=== PATIENT | male | born 1945 | race Caucasian/White ===

== ENCOUNTER 2019-05-11 13:33 | Inpatient (IN) ==
--- NOTE | 2019-05-11 13:58 | PDOC ---
Chest Pain HPI - General Chief Complaint: Chest Pain Stated Complaint: chest pain Date Seen by Provider: 05/11/19 Time Seen by Provider: 13:46 Source: Patient Exam Limitations: POSITIVE: No limitations Treatment Prior to Arrival: REPORTS: Aspirin (81 mg in am as daily medication) Nurse's Notes Reviewed & Considered: Yes - Record Incomplete EMS Report Reviewed & Considered: Verbal - History of Present Illness Initial Comments: 73 yo male presents to ED with complaint of intermittent chest pain since yesterday evening. He lives in the alf in [place]. He has a defib rillator. He states that it has not shocked him. He reports upper abdominal pain with his chest pain. He also reports associated shortness of breath. He denies cough. Denies fevers. Denies R/C/EA/ST. Body Location Affected: REPORTS: Chest, Abdomen Timing: REPORTS: Intermittent Duration: <24 hours Severity: Moderate Context: REPORTS: Rest Quality: REPORTS: Sharpness Associated Symptoms: REPORTS: Nausea, Hurts to Breathe. DENIES: Vomiting, Diaphoresis, Palpitations, Productive Cough (blood), Productive Cough (sputum), Weakness, Dizziness - Patient Home Medications Home Medications: Home Medications acetaminophen 500 mg tablet 1,000 mg PO Q6H PRN tab 05/11/19 aspirin 81 mg tablet,delayed release 81 mg PO QDAY 05/11/19 folic acid 1 mg tablet 1 mg PO QDAY 05/11/19 guaifenesin ER 600 mg tablet, extended release 12 hr 600 mg PO BID 05/11/19 levothyroxine 50 mcg tablet 50 mcg PO QDAY 05/11/19 lisinopril 2.5 mg tablet 2.5 mg PO QDAY 05/11/19 magnesium 400 mg (as magnesium oxide) tablet 400 mg PO QDAY tab 05/11/19 metoprolol succinate ER 25 mg tablet,extended release 24 hr 12.5 mg PO QDAY tab 05/11/19 pantoprazole 40 mg tablet,delayed release 40 mg PO QDAY 05/11/19 pravastatin 10 mg tablet 10 mg PO QHS tab 05/11/19 sitagliptin 100 mg tablet 100 mg PO QDAY 05/11/19 spironolactone 25 mg tablet 25 mg PO QDAY 05/11/19 - Patient Allergies Allergies/Adverse Reactions: Allergies Allergy/AdvReac Type Severity Reaction Status Date / Time No Known Allergies Allergy Unverified 05/11/19 13:55 ROS - Limitations ROS Limitations: No Limitations Constitution: REPORTS: Denies Symptoms Cardiovascular: REPORTS: Chest Pain Respiratory: REPORTS: Denies Resp Symptoms Neurological: REPORTS: Denies Neuro Symptoms Gastrointestinal: REPORTS: Denies GI Symptoms Endocrine: REPORTS: Denies Symptoms Musculoskeletal: DENIES: Back Pain, Calf Pain Genitourinary: REPORTS: Denies Symptoms Eyes: REPORTS: Denies Symptoms ENT: REPORTS: Denies Symptoms Skin: REPORTS: Denies Skin Symptoms Lympathic: REPORTS: Denies Lympathic Symptoms Immunologic: POSITIVE: Denies Symptoms Psychiatric: POSITIVE: Anxiety Chest Pain PE - General Appearance General Appearance: REPORTS: Alert, Cooperative, Anxious, Mild Distress - HEENT HEENT: POSITIVE: Head Inspection Nml, Eyes Inspection Nml, Ears Inspection Nml, PERRL, EOMI - Neck Neck: REPORTS: Normal Inspection, No Carotid Bruit - Respiratory Respiratory: REPORTS: No Respiratory Distress, Breath Sounds Normal, Chest Non- Tender, Wheezes - Cardiovascular Cardiovascular: REPORTS: Regular Rate and Rhythm, Heart Sounds Normal, Equal Pulses, Strong Pulses Peripheral Pulses: Radial (R): 2+, Radial (L): 2+ - Abdomen Abdomen: Soft: (All Quadrants), Normal Bowel Sounds: (All Quadrants), Denies Tenderness: (All Quadrants), No Splenomegaly: (All Quadrants) Additional Abdominal Details: abdominal wall contusion noted bilaterally - Skin Skin: REPORTS: Intact, Normal For Race, Warm, Dry, No Rash, Other (contusion) - Extremities Extremity: Non-Tender: (All Extremities), Normal ROM: (All Extremities), Normal Inspection: (All Extremities), Pelvis Stable: (All Extremities) - Neurological / Psychological Neurological: POSITIVE: Affect Apporpriate, Oriented X3, 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 abdomen shows no obstruction. No free air. Lab Results Reviewed by Me: Yes CBC and BMP: 05/11/19 13:59 05/11/19 14:15 Lab Results:: Laboratory Results 05/11/19 05/11/19 05/11/19 13:59 14:15 14:15 WBC 6.94 RBC 4.51 L Hgb 12.4 L Hct 37.9 L MCV 84.0 MCH 27.5 MCHC 32.7 L RDW Std Deviation 51.5 H RDW Coeff of Nicci 17.1 H Plt Count 188 MPV 10.4 Neutrophils % (Manual) 61 Band Neutrophils % 0 Lymphocytes % (Manual) 29 Monocytes % (Manual) 6 Eosinophils % (Manual) 3 Basophils % (Manual) 1 Metamyelocytes % 0 Myelocytes % 0 Promyelocytes % 0 Blast Cells 0 WBC Morphology Comment See comments Plt Morphology Comment See comments RBC Morph Comment See comments PT 15.7 H INR 1.36 Sodium 136 Potassium 5.8 H Chloride 102 Carbon Dioxide 19 L Anion Gap 15 BUN 44 H Creatinine 2.2 H Estimated GFR [employer] BUN/Creatinine Ratio 20.00 Glucose 92 Calculated Osmolality 292.0 Calcium 8.8 Total Bilirubin 0.7 AST 94 H ALT 53 Alkaline Phosphatase 113 Troponin I Total Protein 7.1 Albumin 4.0 Globulin 3.1 Albumin/Globulin Ratio 1.20 L 05/11/19 14:15 WBC RBC Hgb Hct MCV MCH MCHC RDW Std Deviation RDW Coeff of Nicci Plt Count MPV Neutrophils % (Manual) Band Neutrophils % Lymphocytes % (Manual) Monocytes % (Manual) Eosinophils % (Manual) Basophils % (Manual) Metamyelocytes % Myelocytes % Promyelocytes % Blast Cells WBC Morphology Comment Plt Morphology Comment RBC Morph Comment PT INR Sodium Potassium Chloride Carbon Dioxide Anion Gap BUN Creatinine Estimated GFR BUN/Creatinine Ratio Glucose Calculated Osmolality Calcium Total Bilirubin AST ALT Alkaline Phosphatase Troponin I < 0.012 Total Protein Albumin Globulin Albumin/Globulin Ratio EKG Interpreted/Reviewed By Me:: Yes EKG Interpretation:: POSITIVE: Abnormal EKG (Sinus rhythm with left axis deviation and LBBB with nonspecific T wave inversion.) - Patient's Progress Pain Medication Addressed: POSITIVE: Yes (aspirin given) Re-Examine Comment: Patient has hyperkalemia and was given an amp of calcium and amp of sodium bicarbonate and a liter of fluids. I was able to obtain previous labs from [facility] which shows an acute kidney injury when compared with todays labs. I feel the patient should be admitted for further work up of his chest pain and HARRISON. He is amenable to plan. The case was discussed with hospitalist, Dr. Gramajo, who accepted patient for admission. Patient was admitted in stable and unchanged condition. Status: POSITIVE: Unchanged MDM / ED Course: Will obtain EKG, CXR, establish IV line, check serum labs and given aspirin. Quality Measure Initiative: CP/AMI: POSITIVE: EKG, ASA - Consult Consult (If Yes, Name of Consulting MD & Time Called): Yes (Dr. Gramajo) Consulting MD will see pt:: POSITIVE: [facility] [place] Admit Counseled: POSITIVE: Patient, RE: Lab Results, RE: Radiology Results, RE: DX, Other (need for admission) Patient Care Time - Estimated PCT Patient Care Time (In Minutes): 70 Vital Signs - Recent Vital Signs Vital Signs: Vital Signs (Last 8 hours) Temp Pulse Resp BP Pulse Ox 05/11/19 17:35 97.1 F 76 18 103/67 96 - VS Reviewed Vital Signs Reviewed: Yes Discharge Clinical Impression: Chest pain, Acute kidney failure, Hyperkalemia Discharge Disposition: Admit to Inpatient Condition: Fair Patient Problem(s) Reviewed: Yes Date Decision to Admit to Inpatient: 05/11/19 Time Decision to Admit to Inpatient: 17:19
[2019-05-11] MEDS ORDERED: ASPIRIN 81 MG (BABY) CHEWABLE TABLET PO ONE (13:59)
--- NOTE | 2019-05-11 14:10 | EKG ---
[address] [address] Measurements Intervals [place] Rate: 73 P: 56 DC: 184 QRS: -31 QRSD: 154 T: 102 QT: 439 QTc: 465 Interpretive Statements SINUS RHYTHM MARKED LEFT AXIS DEVIATION [QRS AXIS < -30] LEFT BUNDLE BRANCH BLOCK [120+ ms QRS DURATION, 80+ ms Q/S IN V1/V2, 85+ ms R IN I/aVL/V5/V6] No previous ECG available for comparison [email or web address]
[2019-05-11 14:38] LABS: BLOOD UREA NITROGEN 44 mg/dL (7-22)
[2019-05-11 14:38] LABS: Hematocrit [HCT] 37.9 % (42.0-52.0); Hemoglobin [HGB] 12.4 g/dL (14.0-18.0); MEAN CORPUSCULAR HEMOGLOBIN 27.5 PG (27-31); MEAN CORPUSCULAR HGB CONC 32.7 g/dL (33-37); MEAN PLATELET VOLUME 10.4 FL (7.4-12.2); RED BLOOD COUNT 4.51 10^6/uL (4.70-6.10)
[2019-05-11 14:55] LABS: PLATELET MORPHOLOGY COMMENT SEE COMMENTS (NORM); RBC MORPHOLOGY COMMENT SEE COMMENTS (NORM); WBC MORPHOLOGY COMMENT SEE COMMENTS (NORM)
[2019-05-11 14:56] LABS: BAND NEUTROPHILS % 0 % (0-10); BASOPHILS % (MANUAL) 1 % (0-1); EOSINOPHILS % (MANUAL) 3 % (0-8); METAMYELOCYTES % 0 %; MONOCYTES % (MANUAL) 6 % (0-12); MYELOCYTES % 0 %; NEUTROPHILS % (MANUAL) 61 % (50-80); PROMYELOCYTES % 0 %
--- NOTE | 2019-05-11 16:53 | DI ---
CHEST X-RAY WITH ABDOMINAL SERIES, 05/11/2019 1:59 PM : Clinical History: Epigastric pain. Chest pain. Chest View: PA Abdomen View(s): KUB and upright abdomen. Previous Chest: None at this facility. Previous Abdomen: None at this facility. Chest X-Ray: Soft Tissues: No acute soft tissue or bony abnormality. Bones: Multiple old right lateral rib fractures. Heart: Heart Size: Cardiomegaly with right heart enlargement consistent with compensated chronic righ t heart failure. There is a combined dual-chamber pacemaker and internal defibrillator and both leads are in the appropriate position. The right ventricular lead reflects enlargement of the right heart. Vascular Pedicle Width: Enlarged. Azygous Vein: Not visualized Vascular Flow Pattern:Normal. Pulmonary Arteries: Normal. Lungs: No infiltrates. Effusion(s): None. Mediastinum: Normal. Nodules: No pulmonary nodules. Free Air: No free air under diaphragms. Abdominal Series: Soft Tissues: No acute soft tissue abnormalities. Bones: Normal. Bowel Pattern: Normal bowel gas pattern, psoas margins, and flank stripes. Free Air: No free air. Free Fluid: None. Radiodensities: No abnormal radiodensities. Readin. Cardiomegaly with compensated chronic right heart failure. This should be correlated with the cli nical findings. No acute infiltrate or effusion. No free air under the diaphragms. 2. Normal KUB and upright abdomen.
[2019-05-11] MEDS ORDERED: CALCIUM CHLORIDE 10% (100 MG/1 ML) - 10 ML SYRINGE IVP ONE (17:31)
[2019-05-11] MEDS ORDERED: SODIUM BICARBONATE 8.4% - 50 ML ADULT SYRINGE IVP ONE (17:31)
[2019-05-11] MEDS ORDERED: ACETAMINOPHEN 500 MG TABLET PO PRN (18:26)
[2019-05-11] MEDS ORDERED: CALCIUM CARBONATE 500 MG (TUMS) CHEWABLE TABLET PO PRN (18:30)
[2019-05-11] MEDS ORDERED: LIDOCAINE W/ SODIUM BICARB 0.5 ML SYR SUBD PRN (18:30)
--- NOTE | 2019-05-11 19:26 | PDOC ---
HPI - History of Present Illness Date of Service: 05/11/19 Time of Service: 18:30 Chief Complaint: Chest pain maybe of 2 days' duration History of Present Illness: This is a 73 years old male with medical history significant for history of diab etes, history of congestive heart failure unknown type, hypertension, history of coronary artery disease with previous stents, history of previous defibrillator pacemaker insertion who was transferred from [facility] to the [facility] few dyas ago it seems for long-term placement according to him. He's been having chest pain he said for about a month maybe like every day it is in the middle of the chest there is some numbness in her right arm with it. He couldn't tell me if it was associated with exertion or not. He did say that he feels sometimes dizzy if he stand up. Couldn't tell me the duration maybe for about a month. He Is denying shortness of breath. No leg swelling. Because of the pain that he had in the chest he was sent to the ER from [facility]. In the ER he was found to have renal failure and his creatinine compared to the last blood tests that was done in [place] is higher than before from 1.3 to 2.2 today. Potassium was elevated he was given bicarbonate and calcium and was admitted. Currently he is denying chest pain, shortness of breath. He did say that he was admitted to [facility] maybe about 2 weeks ago for a fall. The notes from them mention that he had a urinary tract infection. Past Medical History Medical History: 1. History of congestive heart failure unknown type, status post the pacemaker and defibrillator insertion. 2. History of diabetes type II on oral hypoglycemic agent. 3. History of hypertension. 4. History of hyperlipidemia. 5. Recent admission to the [facility] after a fall, seems it was attributed to UTI was treated and then switched to swing bed. From the swing bed he was transferred to [facility]. 6. The notes from [facility] mention history of adenocarcinoma of the rectum. He did say that he had abdominal surgery but he wasn't sure for what reason. 7. Hypothyroidism. 8. History of coronary artery disease with previous stent Surgical History: 1. History of abdominal hernia surgery. 2. History of tonsillectomy Family History: Reviewed an Not Pertinent Past Social History: Does not smoke, occasionally drink, no drugs. Used to live in [place] and recently transferred to [facility]. He said that the plan is to stay there permanently. Tobacco Use: Never Smoker In the Past 12 Months, Have Used or Abuse Any of the Following Substance: None Medication / Allergies Home Medications: Home Medications Medication Instructions Recorded Confirmed acetaminophen 500 mg tablet 1,000 mg PO Q6H PRN tab 05/11/19 05/11/19 aspirin 81 mg tablet,delayed 81 mg PO QDAY 05/11/19 05/11/19 release folic acid 1 mg tablet 1 mg PO QDAY 05/11/19 05/11/19 guaifenesin ER 600 mg tablet, 600 mg PO BID 05/11/19 05/11/19 extended release 12 hr levothyroxine 50 mcg tablet 50 mcg PO QDAY 05/11/19 05/11/19 lisinopril 2.5 mg tablet 2.5 mg PO QDAY 05/11/19 05/11/19 magnesium 400 mg (as magnesium 400 mg PO QDAY tab 05/11/19 05/11/19 oxide) tablet metoprolol succinate ER 25 mg 12.5 mg PO QDAY tab 05/11/19 05/11/19 tablet,extended release 24 hr pantoprazole 40 mg tablet,delayed 40 mg PO QDAY 05/11/19 05/11/19 release pravastatin 10 mg tablet 10 mg PO QHS tab 05/11/19 05/11/19 sitagliptin 100 mg tablet 100 mg PO QDAY 05/11/19 05/11/19 spironolactone 25 mg tablet 25 mg PO QDAY 05/11/19 05/11/19 Allergies/Adverse Reactions: Allergies Allergy/AdvReac Type Severity Reaction Status Date / Time No Known Allergies Allergy Unverified 05/11/19 13:55 Review of Systems - Review of Systems All Systems: Reviewed & No Additional Complaints Except as Stated Exam - Vitals Vital Signs: Vital Signs Temperature 97.4 F Temperature Source Temporal Artery Scan Pulse Rate [Pulse Oximeter] 71 Respiratory Rate 20 Blood Pressure [Left Arm] 88/64 Pulse Ox 97 Oxygen Delivery Method Room Air Height 5 ft 6 in Weight 210 lb - General General Appearance: No Acute Distress, Cooperative, Obese - Head Head Exam: Normal Inspection - Eye Eye Exam: POSITIVE: Normal Appearance - ENT ENT Exam: POSITIVE: Normal Exam - Neck Neck Exam: Normal Inspection - Respiratory Respiratory Exam: POSITIVE: Clear to Auscultation - Bilaterally - Cardiovascular Cardiovascular Exam: POSITIVE: RRR, Systolic Murmur - GI/Abdominal GI/Abdominal Exam: POSITIVE: Normal Bowel Sounds, Non Tender, Non Distended, So ft, No Organomegaly - Rectal Rectal Exam: POSITIVE: Deferred - External Exam: POSITIVE: Deferred - Extremities Extremities Exam: POSITIVE: Normal Inspection - Back Back Exam: POSITIVE: Normal Inspection - Neurological Neurological Exam: POSITIVE: Alert, Oriented x 3, CN II-XII Intact, No Facial Droop, Speech Intact / Clear, Moves All Extremities Equally - Psychiatric Psychiatric Exam: POSITIVE: Normal Affect Results - Labs CBC and BMP: 05/11/19 13:59 05/11/19 14:15 - EKG Data -: EKG Interpreted by Me Rate: Normal (EKG showed LBBB) EKG Shows Normal: Sinus Rhythm Assessment and Plan - Patient Problems (1) Acute kidney failure Current Visit: Yes Status: Acute Comment: We have lab results from [facility] and his kidney function back on April 21 showed a a BUN of 24 and a creatinine of 1.3, so I think we'll assume that this is acute renal failure. We'll give him cautious amount of fluid, hold diuretic and lisinopril and repeat his labs in the morning. Will order a UA and order spot sodium and creatinine. Will order also ultrasound of his kidneys tomorrow. Code(s): N17.9 - Acute kidney failure, unspecified (2) Chest pain Current Visit: Yes Status: Acute Comment: The chest pain that he is describing is not very typical he said it's last few second. He somewhat limited in the history that he can give, he couldn't tell me if it is related to exertion or not. He said he's been having it for a month. On and off maybe every morning. I think will repeat his enzymes. if His kidney function improve we'll think about doing a stress test for him. Code(s): R07.9 - Chest pain, unspecified (3) Hyperkalemia Current Visit: Yes Status: Acute Comment: He was given both bicarbonate and calcium in the ER. I think will give him some fluids and repeat his labs. Hold lisinopril and spironolactone for now. Code(s): E87.5 - Hyperkalemia (4) Diabetes Current Visit: Yes Status: Acute Comment: Continue Januvia. Code(s): E11.9 - Type 2 diabetes mellitus without complications (5) Hypothyroidism Current Visit: Yes Status: Acute Comment: Same medication Code(s): E03.9 - Hypothyroidism, unspecified
[2019-05-11] MEDS: Lactated Ringers 500 ML PRIMARY IV SCH (19:47)
[2019-05-11 20:06] LABS: BILIRUBIN,URINE SMALL (NEG); CLARITY,URINE Slightly Cloudy (CLEAR); COLOR,URINE YELLOW (Y); GLUCOSE, URINE (UA) NEGATIVE (NEG); OCCULT BLOOD,URINE NEGATIVE (NEG); PROTEIN,URINE NEGATIVE (NEG); UROBILINOGEN,URINE 0.2 EU/dL (0.2)
[2019-05-11 20:13] LABS: SQUAMOUS EPITHELIAL CELL,UR FEW; URINE SAMPLE TYPE VOIDED SPECIMEN; WBC,URINE 25-50
[2019-05-11 20:14] LABS: BACTERIA,URINE MODERATE; URINE CASTS MODERATE
[2019-05-11] MEDS: Pravastatin Tab 20 MG TAB PO SCH (21:14)
[2019-05-11] MEDS: Ertapenem Inj 1 GM in Sodium Chloride 0.9% 100 ML IV SCH (22:24)
[2019-05-12] MEDS: LEVOTHYROXINE 50 MCG TABLET PO SCH (04:43)
[2019-05-12] MEDS: Lactated Ringers 500 ML PRIMARY IV SCH (04:49)
[2019-05-12 06:26] LABS: BLOOD UREA NITROGEN 47 mg/dL (7-22); BUN/CREATININE RATIO 22.38 (6-20)
[2019-05-12] MEDS ORDERED: Lactated Ringers 500 ML PRIMARY IV SCH (09:00)
[2019-05-12] MEDS: Sodium Chloride 0.9% 500 ML PRIMARY IV SCH ×2 (10:06→17:50)
[2019-05-12] MEDS: METOPROLOL SUCCINATE 25 MG SR 24H TABLET PO SCH (10:06)
[2019-05-12] MEDS: ASPIRIN EC 81 MG TABLET PO SCH (10:06)
[2019-05-12] MEDS: sitaGLIPtin Tab 100 MG TAB PO SCH (10:06)
[2019-05-12] MEDS: PANTOPRAZOLE 40 MG TABLET PO SCH (10:06)
[2019-05-12] MEDS: FOLIC ACID 1 MG TABLET PO SCH (10:06)
[2019-05-12] MEDS: HEPARIN 5000 UNIT/1 ML SUBCUT SCH ×2 (10:07→20:40)
--- NOTE | 2019-05-12 10:36 | PDOC(PROG) ---
Date of Service: 05/12/19 Time of Service: 09:00 Interval History: Subjective Patient said that he had some nausea earlier and maybe vomited clear liquid, he is better now. Denying nausea now. No abdominal pain. Chest pain seemed to be resolved. No dizziness today. He is denying shortness of breath. Objective : Data - Labs CBC and BMP: 05/11/19 13:59 05/12/19 06:00 Objective : Exam - General General Appearance: No Acute Distress, Cooperative, Obese - Head Head Exam: Normal Inspection - Eye Eye Exam: Normal Appearance - ENT ENT Exam: Normal Exam - Neck Neck Exam: Normal Inspection - Respiratory Respiratory Exam: Clear to Auscultation - Bilaterally - Cardiovascular Cardiovascular Exam: RRR - GI/Abdominal GI/Abdominal Exam: Normal Bowel Sounds, Non Tender, Non Distended, Soft, No Organomegaly - Rectal Rectal Exam: Deferred - External Exam: Deferred - Extremities Extremities Exam: Normal Inspection - Back Back Exam: Normal Inspection - Neurological Neurological Exam: Alert, Oriented x 3, CN II-XII Intact, No Facial Droop, Speech Intact / Clear - Psychiatric Psychiatric Exam: Normal Affect Assessment and Plan - Patient Problems (1) Acute kidney failure Current Visit: Yes Status: Acute Comment: His creatinine is still up, based on my calculation his fractional excretion of sodium is low I think will give him small amount of fluid again continue holding the lisinopril and the Aldactone repeat his labs tomorrow. He Is due for an ultrasound of his kidneys today. Code(s): N17.9 - Acute kidney failure, unspecified (2) Chest pain Current Visit: Yes Status: Acute Comment: Very atypical pain he is somewhat poor historian. Enzymes are negative. At one point in time he probably need to have a stress test but I think we need to resolve the issue of his kidney function first. Code(s): R07.9 - Chest pain, unspecified (3) Hyperkalemia Current Visit: Yes Status: Acute Comment: This is improved. Code(s): E87.5 - Hyperkalemia (4) Diabetes Current Visit: Yes Status: Acute Comment: Same medication Code(s): E11.9 - Type 2 diabetes mellitus without complications (5) Hypothyroidism Current Visit: Yes Status: Acute Comment: Same medication Code(s): E03.9 - Hypothyroidism, unspecified (6) History of congestive heart failure Current Visit: Yes Status: Acute Comment: There is a history of congestive heart failure unknown type, his BNP is markedly elevated but he has renal failure and that may play part in the elevation. Despite elevation clinically he does not appear to be wet. His lungs are clear, his JVP is not raised. I think we can try to give him a small amounts of fluids and then see his response. I did order an echocardiogram for him. Code(s): Z86.79 - Personal history of other diseases of the circulatory system (7) Abnormal finding on urinalysis Current Visit: Yes Status: Acute Comment: His UA was abnormal elected to start him on antibiotics until we have culture result. Code(s): R82.90 - Unspecified abnormal findings in urine
--- NOTE | 2019-05-12 14:08 | DI ---
CT ABDOMEN SCAN WITHOUT IV CONTRAST, 05/12/2019 12:26 PM : Clinical History: Abdominal distention. Vomiting. Previous Exam: None at this facility. IV Contrast: None administered. Oral Contrast: No oral contrast ordered. Rectal Contrast: No rectal contrast ordered. Lungs: No acute infiltrates. There may be a very small right pleural effusion. Heart: Marked cardiomegaly without a pericardial effusion. Liver: Normal. Gallbladder: Status post cholecystectomy. Common bile duct measures proximally 6 mm. Adrenal Glands: Normal. Spleen: Mild splenomegaly. Calcifications are present in the spleen consistent with previous exposure to either TB or histoplasmosis. Pancreas: Atrophic but normal. Kidneys: Normal size, shape, position and contour. No hydronephrosis or hydroureter. No renal or uret eral calculi. There is inflammatory/infiltrative "stranding" surrounding the left kidney and this can reflect either a chronic or acute process. Lymph Nodes: Normal. Masses: None. Ascites: There is a very small amount of fluid in the left gutter with a small amount of fluid in the subdiaphragmatic region above the dome of the liver. Free Air: None. Spine: Normal lower thoracic and lumbar spine. Osteoporosis. READIN. Small amount of ascites in the right subdiaphragmatic region as well as the left gutter. 2. Perinephric inflammatory/infiltrative change involving the fat. This can either be chronic or acu te. The kidneys are normal. 3. Marked cardiomegaly without evidence of a pericardial effusion. CT PELVIS SCAN WITHOUT IV CONTRAST, 05/12/2019 12:26 PM: Clinical History: See above. Previous Exam: None at this facility. Contrast: None administered. Masses: No masses or enhancing lesions. Ascites: There is a small to moderate amount of ascites in the rectovesicular pouch. Free Air: None. Lymph Nodes: No adenopathy. Appendix: Normal. There is a trace amount of fluid surrounding the cecal tip. Small Bowel: Normal small bowel, terminal ileum, and ileocecal valve. Colon: Normal. Bladder: Normal. Hernias: None. Bony Pelvis: Normal sacrum, pelvic bones, and hips. READING: Small moderate amount of ascites in the pelvis. The appendix is visualized and has a normal caliber a nd appearance. Fluid surrounds the cecal tip.
--- NOTE | 2019-05-12 14:15 | DI ---
BILATERAL RENAL ULTRASOUND, 05/12/2019 7:00 AM: Clinical History: Acute renal failure. Previous Exam: None at this facility. Technique: Scans are performed through both kidneys in multiple projections. Renal Size: Right Kidney: 94 mm. Left Kidney: 104 mm. Renal Mass: No solid or cystic mass seen. Renal Perfusion: Normal perfusion to both kidneys. Hydronephrosis: No hydronephrosis in either kidney. Hydroureter: No hydroureter. Bladder: Appearance: Normal. Ureteral Jets: Bilateral ureteral jets visualized. Pre Void Volume: 115-120 mL. Post Void Volume: 75 mL. Prostate: Marked prostatic hypertrophy noted. Readin. Normal bilateral renal ultrasound without evidence of obstructive uropathy. The bladder is normal and there is 75 mL post void residual volume. 2. Marked prostatic hypertrophy.
[2019-05-12] MEDS ORDERED: TAMSULOSIN 0.4 MG CAPSULE PO ONE (15:11)
--- NOTE | 2019-05-12 15:31 | PTI REPORT ---
Thank you for the referral of Singh Guerra. He was seen on 05/12/19 for an inpatient evaluation secondary to weakness. SUBJECTIVE: The patient is a 73-year-old male. Per a chart review, the patient was brought into the ER last night from the [facility] after having complaints of chest pains. This patient is familiar to us and has underwent a MoCA while at the [facility], scoring a 13, indicating moderate difficulties with cognition. PAST MEDICAL HISTORY: Past medical history can be found in the patient's medical record. OBJECTIVE FINDINGS: Pain: The patient denies having any pain when asked; however, later on in the physical examination, the patient complained of pain but was unable to verbalize location. Bed mobility/Transfers: The patient was able to perform bed mobility and sit to stand transfers with stand by assistance. Ambulation: The patient does ambulate with an all wheeled walker while at the [facility], but this was not brought with him, so the patient borrowed a front wheeled walker while at the hospital. The patient did demonstrate the ability to ambulate on room air x300 feet with multiple standing rest breaks due to shortness of breath as well as fatigue. Strength/Range of motion: See occupational therapy evaluation for upper extremity strength and range of motion. Lower extremity strength at best at this time is 4/5 initially; however, he fatigues quickly with ambulatory activities. His range of motion is within functional limits. Balance: The patient's standing balance with the use of a front wheeled walker is fair. ASSESSMENT: Problem List: Decreased endurance/strength Safety awareness concerns due to cognition Physical Therapy Goals: To be met by discharge from inpatient: Patient will be able to ambulate up to 300 feet safely with appropriate assistive device with one standing rest break less than 30 seconds. Patient will increase lower extremity strength to at least 4/5 for modified independence with all bed mobility and transfers. TREATMENT PLAN: Patient will be seen B.I.D during the week and one time per day over the weekend as an inpatient to address the above goals and objectives. INITIAL TREATMENT: Treatment today consisted of the initial evaluation followed by issuing the patient a front wheeled walker to borrow while here in the hospital. He performed therapeutic exercises and functional activities including ambulating x300 feet around the nurse's station with four standing rest breaks all less than 45 seconds in length, sit to stands x10, long arc quads, and heel raises x10 each in the unsupported seated position at edge of bed. He was transferred into chair with chair alarm put in place. CHIRAG
[2019-05-12] MEDS: Pravastatin Tab 20 MG TAB PO SCH (20:40)
[2019-05-12] MEDS: Ertapenem Inj 1 GM in Sodium Chloride 0.9% 100 ML IV SCH (21:29)
[2019-05-13] MEDS: LEVOTHYROXINE 50 MCG TABLET PO SCH (04:31)
[2019-05-13 05:19] LABS: BLOOD UREA NITROGEN 41 mg/dL (7-22); BUN/CREATININE RATIO 21.57 (6-20)
[2019-05-13] MEDS: ONDANSETRON 4 MG/2 ML VIAL IVP PRN ×2 (07:12→23:56)
[2019-05-13 07:20] LABS: BASOPHILS # (AUTO) 0.05 10*3/UL; BASOPHILS % (AUTO) 0.6 % (0-1); EOSINOPHILS # (AUTO) 0.16 10*3/UL; Hematocrit [HCT] 37.5 % (42.0-52.0); Hemoglobin [HGB] 12.3 g/dL (14.0-18.0); LYMPHOCYTES # (AUTO) 1.59 10*3/uL; MEAN CORPUSCULAR HEMOGLOBIN 27.6 PG (27-31); MEAN CORPUSCULAR HGB CONC 32.8 g/dL (33-37); MEAN CORPUSCULAR VOLUME 84.3 FL (80-90); MEAN PLATELET VOLUME 11.7 FL (7.4-12.2); MONOCYTES # (AUTO) 0.89 10*3/UL (0.3-0.8); MONOCYTES % (AUTO) 11.3 % (5-15); NEUTROPHILS # (AUTO) 5.13 10*3/UL; NEUTROPHILS % (AUTO) 65.3 % (50-80); RED BLOOD COUNT 4.45 10^6/uL (4.70-6.10)
[2019-05-13 07:21] LABS: PLATELET MORPHOLOGY COMMENT NORMAL MORPHOLOGY (NORM); RBC MORPHOLOGY COMMENT NORMAL MORPHOLOGY (NORM); WBC MORPHOLOGY COMMENT NORMAL MORPHOLOGY (NORM)
[2019-05-13] MEDS: PANTOPRAZOLE 40 MG TABLET PO SCH (08:21)
[2019-05-13] MEDS: ASPIRIN EC 81 MG TABLET PO SCH (08:21)
[2019-05-13] MEDS: TAMSULOSIN 0.4 MG CAPSULE PO SCH (08:21)
[2019-05-13] MEDS: FOLIC ACID 1 MG TABLET PO SCH (08:21)
[2019-05-13] MEDS: sitaGLIPtin Tab 100 MG TAB PO SCH (08:21)
[2019-05-13] MEDS: METOPROLOL SUCCINATE 25 MG SR 24H TABLET PO SCH (08:21)
[2019-05-13] MEDS: HEPARIN 5000 UNIT/1 ML SUBCUT SCH ×2 (08:22→21:05)
--- NOTE | 2019-05-13 09:36 | PDOC(PROG) ---
Date of Service: 05/13/19 Time of Service: 09:30 Interval History: Subjective He said he had some nausea earlier but the did not vomit. He did receive some Zofran apparently that helped. No chest pain,he said he had some abdominal pain earlier that's resolved. Objective : Data - Labs CBC and BMP: 05/13/19 04:30 05/13/19 04:30 Objective : Exam - General General Appearance: No Acute Distress, Cooperative, Obese - Head Head Exam: Normal Inspection - Eye Eye Exam: Normal Appearance - ENT ENT Exam: Normal Exam - Neck Neck Exam: Normal Inspection - Respiratory Respiratory Exam: Clear to Auscultation - Bilaterally - Cardiovascular Cardiovascular Exam: RRR, Systolic Murmur - GI/Abdominal GI/Abdominal Exam: Normal Bowel Sounds, Non Tender, Non Distended, Soft, No Organomegaly - Rectal Rectal Exam: Deferred - External Exam: Deferred - Extremities Extremities Exam: Normal Inspection - Back Back Exam: Normal Inspection - Neurological Neurological Exam: Alert, Oriented x 3, CN II-XII Intact, No Facial Droop, Speech Intact / Clear, Moves All Extremities Equally - Psychiatric Psychiatric Exam: Normal Affect Assessment and Plan - Patient Problems (1) Acute kidney failure Current Visit: Yes Status: Acute Comment: Creatinine slowly improving. I think will watch his intake today and decide if I need to give him small amount of fluid in addition to what he had received. Continue holding the lisinopril and spironolactone. Code(s): N17.9 - Acute kidney failure, unspecified (2) Chest pain Current Visit: Yes Status: Acute Comment: I think we'll hold off on stress test now until his kidney function improves. He's been ruled out. His pain is very atypical, his history is also limited by his the cognition not sure he has dementia but I think that's his mental capacity. Code(s): R07.9 - Chest pain, unspecified (3) Hyperkalemia Current Visit: Yes Status: Acute Comment: Slightly higher. We will keep watching it. Code(s): E87.5 - Hyperkalemia (4) Diabetes Current Visit: Yes Status: Acute Comment: Same medication Code(s): E11.9 - Type 2 diabetes mellitus without complications (5) Hypothyroidism Current Visit: Yes Status: Acute Comment: Same med Code(s): E03.9 - Hypothyroidism, unspecified (6) History of congestive heart failure Current Visit: Yes Status: Acute Comment: His BNP is elevated, I was hoping to get an echo today however apparently this won't be done until Saturday. His lungs are clear and JVP is not raised so continue holding diuretics. Code(s): Z86.79 - Personal history of other diseases of the circulatory system (7) Abnormal finding on urinalysis Current Visit: Yes Status: Acute Comment: Because of the vomiting and some reported pain in the abdomen and abnormal UA I start him on antibiotics and he'll continue until we have culture. Code(s): R82.90 - Unspecified abnormal findings in urine
--- NOTE | 2019-05-13 10:21 | OTI REPORT ---
Thank you for the referral of Singh Guerra. He was seen on 05/12/19 for an occupational therapy inpatient evaluation secondary to weakness. SUBJECTIVE: The patient is a 73-year-old male who is being seen today secondary to weakness. The patient was brought into the hospital and admitted as an inpatient. The patient states he is from [place] but was living in [place]. He said that he had to come to [place] because of circumstances that he didn't necessarily want to discuss. Prior to admission the patient was completing simple ADLs by himself but struggling to take care of his needs at home. PAST MEDICAL HISTORY: Past medical history can be found in the patient's medical record. OBJECTIVE FINDINGS: General observations: The patient was alert and oriented to name, month, and year; however, he did not know the date. He did appear to be slower with responses and abstract thought. Bed mobility: The patient was able to come from supine to sit with increased time. Range of motion: While sitting edge of bed he demonstrated good active range of motion of bilateral upper extremities. Strength: Strength for shoulder flexion was 4/5, abduction was 4/5, elbow flexion/extension was 4+/5, wrist flexion/extension was 4+/5. Activities of daily living: While sitting edge of bed the patient was able to don and doff socks with increased time but was independent. The patient required min assist with toilet transfers today for balance and needed assistance to don and doff pants to knee with min assist. The patient needed cues for hygiene. ASSESSMENT: The patient would benefit from some cognitive assessments and screenings to assess his cognitive processing abilities. Problem List: Decreased safety with functional transfers and ADLs Weakness Short-Term Goals: To be met by discharge from inpatient: Patient will increase upper extremity strength to 4+/5 throughout upper extremities to improve strength for ADLs and transfers. Patient will be able to complete a toilet transfer with stand by assist with use of walker. Patient will complete a MoCA and possibly a CPT to address his cognitive functioning. Patient will dress self including set up with stand by assist. Long-Term Goals: To be met following discharge from inpatient: Patient will return back to [facility] demonstrating safety with all functional transfers and simple ADLs with modified independence. TREATMENT PLAN: Patient will be seen B.I.D during the week and one time per day over the weekend as an inpatient to address the above goals and objectives. INITIAL TREATMENT: Treatment today consisted of the initial evaluation followed by the patient competing dressing tasks edge of bed. He completed a toilet transfer with min assist for balance and min assist for donning and doffing pants while keeping balance. The patient completed upper extremity strengthening with yellow theraband for biceps, rows, triceps, and internal/external rotation. When the therapist arrived, the patient did not have his oxygen on, even though his oxygen was hooked up. He kept his oxygen saturation above 92% before we left for therapy, during therapy session, and after therapy session. This was reported to the nurse and they are going to try to discontinue the oxygen. GEMAD
--- NOTE | 2019-05-13 10:26 | PT PM DAY ---
Diagnosis : Weakness PM - Physical Therapy S: The patient reports he fatigued pretty easily when walking. O: The patient ambulated with min assist to contact guard assist for balance with use of wheeled walker. The patient would walk 10 feet and then have to take a rest break. He did this five different times while walking to the elevator. He then needed to sit. Downstairs in therapy the patient completed sit to stands x6 with min assist. He performed marching, hip adduction, red theraband resisted knee flexion/extension, and four way ankle exercises. The patient then ambulated back up to his room x50 feet with three different rest breaks. The patient then transferred back to bed. A: The patient requires contact guard to min assist for balance. He also needs frequent rest breaks. His cognitive status is questionable with safety awareness. P: Continue seeing patient BID during the week and one time per day over the weekend for transfers, ambulation, and range of motion/strengthening exercises. MTDD
--- NOTE | 2019-05-13 11:26 | OT.PROG ---
Progress Note Progress Note: S: pt stated that he was feeling better than he did before. O: tx consisted of functional transfer to bathroom were pt competed toileting tasks and hygiene independently. pt then completed proper breathing exercises with education and demonstration. A: pt needed multiple verbal cues for safety and to breath through his nose. P: continue POC
--- NOTE | 2019-05-13 11:38 | PT.PROG ---
Progress Note Progress Note: S. Patient stated that he is tired this morning, however agreed to go for a walk. O. Patient ambulated 150 feet around the nurses station, with multiple standing rest breaks. Patient returned to his room where he was left with alarm and call light. A. Patient tolerated ambulation fair, he fatigues easily and requires frequent rest breaks, he would continue to benefit from skilled therapy to increase strength, endurance and safety at this time. P. Continue POC.
--- NOTE | 2019-05-13 17:00 | PT.PROG ---
Progress Note Progress Note: S. Patient agreed to go for a walk. O. Patient ambulated 150 feet around the nurses station, with multiple standing rest breaks. Patient returned to his room where he was left with alarm and call light. A. Patient tolerated ambulation fair, he fatigues easily and requires frequent rest breaks, he would continue to benefit from skilled therapy to increase strength, endurance and safety at this time. P. Continue POC.
--- NOTE | 2019-05-13 17:27 | OT.PROG ---
Progress Note Progress Note: S: pt stated he was tired from his walk earlier. He stated he was willing to do a few exercises. O: pt was seen in his room and completed UE exercises with RTB in all planes x10. He also completed seated marches x10 with BLE. A: pt fatigues easily and needed to take a quick breather after each 10 reps. P: continue per POC.
[2019-05-13] MEDS: Ertapenem Inj 1 GM in Sodium Chloride 0.9% 100 ML IV SCH (21:03)
[2019-05-13] MEDS: Pravastatin Tab 20 MG TAB PO SCH (21:04)
[2019-05-14] MEDS: LEVOTHYROXINE 50 MCG TABLET PO SCH (05:21)
[2019-05-14 06:08] LABS: BLOOD UREA NITROGEN 43 mg/dL (7-22); BUN/CREATININE RATIO 23.88 (6-20)
[2019-05-14 06:25] LABS: HEMOGLOBIN A1C 6.12 % (4.2-6.0)
[2019-05-14] MEDS ORDERED: FUROSEMIDE 10 MG/1 ML - 2 ML VIAL IV ONE (07:15)
[2019-05-14] MEDS ORDERED: DEXTROSE 50%-WATER SYRINGE 50 ML SYRINGE IVP ONE (07:24)
[2019-05-14] MEDS ORDERED: INSULIN REGULAR, HUMAN 100 UNIT/1 ML - 3 ML IV ONE (07:45)
[2019-05-14] MEDS: METOPROLOL SUCCINATE 25 MG SR 24H TABLET PO SCH (09:20)
[2019-05-14] MEDS: FOLIC ACID 1 MG TABLET PO SCH (09:20)
[2019-05-14] MEDS: PANTOPRAZOLE 40 MG TABLET PO SCH (09:20)
[2019-05-14] MEDS: ASPIRIN EC 81 MG TABLET PO SCH (09:20)
[2019-05-14] MEDS: TAMSULOSIN 0.4 MG CAPSULE PO SCH (09:20)
[2019-05-14] MEDS: sitaGLIPtin Tab 100 MG TAB PO SCH (09:20)
--- NOTE | 2019-05-14 10:45 | OT.PROG ---
Progress Note Progress Note: S: pt stated that he was okay and wanted to know when he would be going back to the care center. O: tx consisted of 2# bicep curls x15, UE yellow RTB exercises o biceps x20, chest pull x15. A: pt needed multiple rest breaks and completed exercises at a slow but steady pace. P: continue POC
--- NOTE | 2019-05-14 11:40 | PT.PROG ---
Progress Note Progress Note: S. Patient agreed to perform exercises in his room this morning. O. Patient performed seated exercises in the form of; long arc quads, heel toe raises, ball squeezes, clam shells, resisted knee flexion, and marches all x 10 bilaterally with red thera band. Patient was left with OT for further therapy. A. Patient tolerated therapy fair, he fatigues easily and requires frequent rest breaks to recover, he would continue to benefit from skilled therapy to increase strength, endurance and safety at this time. P. Continue POC.
[2019-05-14 11:56] LABS: BLOOD UREA NITROGEN 41 mg/dL (7-22); BUN/CREATININE RATIO 21.57 (6-20)
--- NOTE | 2019-05-14 13:48 | EKG ---
[address] [place] [address] Measurements Intervals [place] Rate: 73 P: 39 MS: 196 QRS: -42 QRSD: 153 T: 136 QT: 426 QTc: 453 Interpretive Statements SINUS RHYTHM LEFT AXIS DEVIATION LEFT BUNDLE BRANCH BLOCK Compared to ECG 05/11/2019 13:39:34 No significant changes Electronically Signed On 05-15-19 09:46:59 MDT by Chris Nascimento [email or web address]
--- NOTE | 2019-05-14 15:27 | PDOC(PROG) ---
Date of Service: 05/14/19 Time of Service: 15:22 Interval History: Denies chest pain. States he feels better. No nausea or vomiting. No shortness of breath. Weak. States to me that he wants compressions if he has his heart stopped, but his mocha score was found to be 13. Not sure if he is competent to make these decisions and we'll have to see if he has a POLST form or power of patent attorney. In addition, the patient has an AICD in place which is still activated as far as I know. Objective : Data - Labs CBC and BMP: 05/13/19 04:30 05/14/19 11:42 Objective : Exam - General General Appearance: No Acute Distress, Cooperative Additional General Exam Details: Vital Signs - Last Taken Temperature 97.0 F 05/14/19 12:29 Pulse Rate 78 05/14/19 13:23 Respiratory Rate 18 05/14/19 12:29 Blood Pressure 105/59 05/14/19 12:29 Pulse Ox 92 05/14/19 13:23 - Eye Eye Exam: No Scleral Icterus - ENT ENT Exam: Mucous Membranes Dry - Neck Neck Exam: JVP is not Raised - Respiratory Respiratory Exam: Clear to Auscultation - Bilaterally, Breathing Non Labored - Cardiovascular Cardiovascular Exam: RRR, No Clicks, No Gallops, No Rubs, Systolic Murmur - GI/Abdominal GI/Abdominal Exam: Normal Bowel Sounds, Non Tender, Non Distended, Soft - Extremities Extremities Exam: No Clubbing Present, No Cyanosis Present, +1 Edema - Neurological Neurological Exam: Alert, No Facial Droop, Speech Intact / Clear, Altered (Oriented to person, vaguely to place, not oriented to time or situation) Assessment and Plan - Patient Problems (1) Acute kidney failure Current Visit: Yes Status: Acute Code(s): N17.9 - Acute kidney failure, unspecified Qualifiers: Acute renal failure type: unspecified Qualified Code(s): N17.9 - Acute kidney failure, unspecified (2) Hyperkalemia Current Visit: Yes Status: Acute Code(s): E87.5 - Hyperkalemia (3) Chest pain Current Visit: Yes Status: Acute Code(s): R07.9 - Chest pain, unspecified (4) Diabetes Current Visit: Yes Status: Acute Code(s): E11.9 - Type 2 diabetes mellitus without complications Qualifiers: Diabetes mellitus type: type 2 Diabetes mellitus termite control servicer insulin use: without senior care use Diabetes mellitus complication status: without complication Qualified Code(s): E11.9 - Type 2 diabetes mellitus without complications (5) Hypothyroidism Current Visit: Yes Status: Acute Code(s): E03.9 - Hypothyroidism, unspecified Qualifiers: Hypothyroidism type: acquired Qualified Code(s): E03.9 - Hypothyroidism, unspecified (6) Congestive heart failure Current Visit: Yes Status: Acute Code(s): I50.9 - Heart failure, unspecified Qualifiers: Heart failure type: systolic Heart failure chronicity: chronic Qualified Code(s): I50.22 - Chronic systolic (congestive) heart failure (7) History of alcoholism Current Visit: Yes Status: Acute Code(s): F10.21 - Alcohol dependence, in remission (8) Cognitive impairment Current Visit: Yes Status: Acute Code(s): R41.89 - Other symptoms and signs involving cognitive functions and awareness - Assessment / Plan Additional Assessment/Plan Details: Echocardiogram tomorrow. I'm going to continue off the ORLANDO inhibitor and also off of spironolactone and give fluids. Labs in a.m. We'll try to confirm whether or not he has a power of patent attorney and speak to them about CODE STATUS. In addition, try to figure out what the status of the AICD is and whether he needs to be interrogated and whether it's only an AICD or AICD/pacemaker. He stated to me that he was living independently in an apartment but does not feel that he can live independently at all anymore. He is most interested in disposition back to the care home when improved from his kidney failure. His baseline creatinine appears to be around 1-1.3, so I suspect a lot of this is p rerenal azotemia along with possible intrinsic kidney failure with medications. He states he has stents placed quite a while ago with the ID
[2019-05-14] MEDS: Sodium Chloride 0.9% 1,000 ML PRIMARY IV SCH (17:14)
[2019-05-15 05:25] LABS: BLOOD UREA NITROGEN 42 mg/dL (7-22); BUN/CREATININE RATIO 23.33 (6-20)
[2019-05-15] MEDS: LEVOTHYROXINE 50 MCG TABLET PO SCH (06:01)
[2019-05-15] MEDS: FOLIC ACID 1 MG TABLET PO SCH (09:51)
[2019-05-15] MEDS: PANTOPRAZOLE 40 MG TABLET PO SCH (09:51)
[2019-05-15] MEDS: TAMSULOSIN 0.4 MG CAPSULE PO SCH (09:51)
[2019-05-15] MEDS: ASPIRIN EC 81 MG TABLET PO SCH (09:51)
[2019-05-15] MEDS: Sodium Chloride 0.9% 1,000 ML PRIMARY IV SCH (09:51)
[2019-05-15] MEDS: METOPROLOL SUCCINATE 25 MG SR 24H TABLET PO SCH (09:58)
--- NOTE | 2019-05-15 12:36 | PDOC(PROG) ---
Date of Service: 05/15/19 Time of Service: 12:31 Interval History: No completes of chest pain, shortness breath, nausea or vomiting. He states his brother is designated to help him make decisions. He states he has no children. His POLST form was located, he is DO NOT RESUSCITATE with comfort measures and no artificial nutrition. Objective : Data - Labs CBC and BMP: 05/13/19 04:30 05/15/19 04:01 Objective : Exam - General General Appearance: No Acute Distress, Cooperative Additional General Exam Details: Vital Signs - Last Taken Temperature 97.9 F 05/15/19 12:09 Pulse Rate 74 05/15/19 11:00 Respiratory Rate 16 05/15/19 08:45 Blood Pressure 122/62 05/15/19 12:09 Pulse Ox 99 05/15/19 12:09 - Eye Eye Exam: No Scleral Icterus - ENT ENT Exam: Mucous Membranes Moist - Neck Neck Exam: JVP is not Raised - Respiratory Respiratory Exam: Clear to Auscultation - Bilaterally, Breathing Non Labored - Cardiovascular Cardiovascular Exam: RRR, No Clicks, No Gallops, No Rubs, Systolic Murmur - GI/Abdominal GI/Abdominal Exam: Normal Bowel Sounds, Non Tender, Non Distended, Soft - Extremities Extremities Exam: No Clubbing Present, No Edema Present, No Cyanosis Present - Neurological Neurological Exam: Alert, No Facial Droop, Speech Intact / Clear, Moves All Extremities Equally, Altered (He is oriented to person, not to place, time, or situation.) - Psychiatric Psychiatric Exam: Normal Affect, Normal Mood Assessment and Plan - Patient Problems (1) Acute kidney failure Current Visit: Yes Status: Acute Code(s): N17.9 - Acute kidney failure, unspecified Qualifiers: Acute renal failure type: unspecified Qualified Code(s): N17.9 - Acute kidney failure, unspecified (2) Chest pain Current Visit: Yes Status: Acute Code(s): R07.9 - Chest pain, unspecified (3) Diabetes Current Visit: Yes Status: Acute Code(s): E11.9 - Type 2 diabetes mellitus without complications Qualifiers: Diabetes mellitus type: type 2 Diabetes mellitus long wall shear operator insulin use: without skilled nursing use Diabetes mellitus complication status: without complication Qualified Code(s): E11.9 - Type 2 diabetes mellitus without complications (4) Hypothyroidism Current Visit: Yes Status: Acute Code(s): E03.9 - Hypothyroidism, unspecified Qualifiers: Hypothyroidism type: acquired Qualified Code(s): E03.9 - Hypothyroidism, unspecified (5) Congestive heart failure Current Visit: Yes Status: Acute Code(s): I50.9 - Heart failure, unspecified Qualifiers: Heart failure type: systolic Heart failure chronicity: chronic Qualified Code(s): I50.22 - Chronic systolic (congestive) heart failure (6) History of alcoholism Current Visit: Yes Status: Acute Code(s): F10.21 - Alcohol dependence, in remission (7) Cognitive impairment Current Visit: Yes Status: Acute Code(s): R41.89 - Other symptoms and signs involving cognitive functions and awareness (8) Hyperkalemia Current Visit: Yes Status: Resolved Code(s): E87.5 - Hyperkalemia - Assessment / Plan Additional Assessment/Plan Details: I tried to call his brother, Sunita, but the number goes to some sort of [employer] business. I wanted to get directive as to how aggressive we should be in terms of workup. At this point, with the patient having chest pains, I think we need to see if he has stable angina or not and whether or not we can do something about it in terms of nitroglycerin or other medications. He is not a good candidate for spironolactone or ORLANDO inhibitor due to hyperkalemia. Continue with stress test, chemical stress test. Again, this is an workup to try and provide the patient with comfort measures and treat him for any chest pain discomforts that he may have more appropriately. I suspect he has underlying dementia and is not a good candidate at all for heart catheterization and is not a candidate for CABG Echocardiogram to assess left ventricular ejection fraction. Patient will need cardiology follow-up to reassess AICD function. In particular at some point, we will need to somehow contact the patient's brother and see whether or not the AICD function can be turned off visits the patient's wish to be DO NOT RESUSCITATE. He's been very inconsistent with these answers when I have discussed it with him, but he has a POLST form in these decisions are even made. With his dementia, I don't know that he is competent enough to make a decision to reverse that. He looks euvolemic, stop fluids. I'm hoping at the conclusion of the stress test, that the results of the stress test will allow us to disposition the patient back to [facility] facility.
--- NOTE | 2019-05-15 17:27 | PT.PROG ---
Progress Note Progress Note: pt in on hold today due to nuclear stress test this PM.
--- NOTE | 2019-05-15 18:47 | DI ---
CT HEAD SCAN WITHOUT IV CONTRAST, 05/15/2019 3:50 PM : Clinical History: Injury. The patient fell. Chronic alcoholism. Confusion. Previous Exam: None at this facility. Technique: Scanned from the foramen magnum to vertex without IV contrast. Sagittal and coronal reform atted images generated. Contrast Volume: None. 4th Ventricle: Normal. 3rd Ventricle: Moderately dilated. Lateral Ventricles: Moderately dilated. Sella: Normal size and normal pituitary gland. Cerebrum: There is no evidence of an acute intracranial hemorrhagic focus. Cerebellum: Normal. No cerebellopontine angle mass. Normal cerebellar tonsillar position. Brainstem: Normal. Atrophy: There is diffuse cerebellar, cerebral, and brainstem atrophy. This diffuse atrophic pattern is consistent with the clinical diagnosis of chronic alcoholism. Extracerebral Mantles/Midline Shift: No extracerebral mantle or dural lesion. No midline shift. Sinuses: Small mucus retention cyst or polyp in the left maxillary sinus. Skull: Intact. READIN. There is no evidence of an acute intracranial hemorrhagic focus. 2. Diffuse cerebellar, cerebral, and brainstem atrophy consistent with the clinical diagnosis of chr onic alcoholism.
[2019-05-16 04:41] LABS: BLOOD UREA NITROGEN 37 mg/dL (7-22); BUN/CREATININE RATIO 21.76 (6-20)
--- NOTE | 2019-05-16 11:01 | OT.PROG ---
Progress Note Progress Note: unable to see pt for therapy services today due to pt completing a stress test. checked with pt after stress test and pt refused therapy services.
--- NOTE | 2019-05-16 12:32 | PDOC(PROG) ---
Date of Service: 05/16/19 Time of Service: 12:28 Interval History: no chest pain, SOB, nausea or vomiting. had some back pain earlier today. Objective : Data - Labs CBC and BMP: 05/13/19 04:30 05/16/19 03:50 Objective : Exam - General General Appearance: No Acute Distress, Cooperative Additional General Exam Details: Vital Signs - Last Taken Temperature 97.6 F 05/16/19 11:45 Pulse Rate 78 05/16/19 11:45 Respiratory Rate 20 05/16/19 11:45 Blood Pressure 105/56 05/16/19 11:45 Pulse Ox 99 05/16/19 11:45 - Eye Eye Exam: No Scleral Icterus - ENT ENT Exam: Mucous Membranes Moist - Neck Neck Exam: JVP is not Raised - Respiratory Respiratory Exam: Clear to Auscultation - Bilaterally, Breathing Non Labored - Cardiovascular Cardiovascular Exam: RRR, No Murmur, No Clicks, No Gallops, No Rubs, No JVD - GI/Abdominal GI/Abdominal Exam: Normal Bowel Sounds, Non Tender, Non Distended, Soft - Extremities Extremities Exam: No Clubbing Present, No Cyanosis Present, +1 Edema - Neurological Neurological Exam: Alert, No Facial Droop, Speech Intact / Clear, Moves All Extremities Equally Additional Neurological Exam Details: more oriented today to time and situation. knew we were doing a stress test. Assessment and Plan - Patient Problems (1) Congestive heart failure Current Visit: Yes Status: Acute Code(s): I50.9 - Heart failure, unspecified Qualifiers: Heart failure type: systolic Heart failure chronicity: chronic Qualified Code(s): I50.22 - Chronic systolic (congestive) heart failure (2) Chest pain Current Visit: Yes Status: Acute Code(s): R07.9 - Chest pain, unspecified (3) Acute kidney failure Current Visit: Yes Status: Acute Code(s): N17.9 - Acute kidney failure, unspecified Qualifiers: Acute renal failure type: unspecified Qualified Code(s): N17.9 - Acute kidney failure, unspecified (4) Diabetes Current Visit: Yes Status: Acute Code(s): E11.9 - Type 2 diabetes mellitus without complications Qualifiers: Diabetes mellitus type: type 2 Diabetes mellitus penitentiary insulin use: without terminal block assembler use Diabetes mellitus complication status: without complication Qualified Code(s): E11.9 - Type 2 diabetes mellitus without complications (5) Hypothyroidism Current Visit: Yes Status: Resolved Code(s): E03.9 - Hypothyroidism, unspecified Qualifiers: Hypothyroidism type: acquired Qualified Code(s): E03.9 - Hypothyroidism, unspecified (6) History of alcoholism Current Visit: Yes Status: Acute Code(s): F10.21 - Alcohol dependence, in remission (7) Cognitive impairment Current Visit: Yes Status: Acute Code(s): R41.89 - Other symptoms and signs involving cognitive functions and awareness (8) Hyperkalemia Current Visit: Yes Status: Resolved Code(s): E87.5 - Hyperkalemia (9) Alcoholic dementia Current Visit: Yes Status: Acute Code(s): F10.27 - Alcohol dependence with alcohol-induced persisting dementia - Assessment / Plan Additional Assessment/Plan Details: stress test today continue off IV fluids CT head--no blood or SDH on my view. radiologist felt there was atrophy consistent with alcohol use. start thiamine. PT and OT hopeful for completion of stress test tomorrow for risk stratification not a candidate for ACEI or spironolactone due to hyperkalemia eventual cardiology evaluation for AICD shut off discussed with brother, Afshin--also will order hospital social worker at [facility] to assist Afshin with POA paperwork process.
[2019-05-16] MEDS ORDERED: HEPARIN 500 UNIT/5 ML SYRINGE FOR CENTRAL LINE IVP PRN (16:07)
[2019-05-16] MEDS: LEVOTHYROXINE 50 MCG TABLET PO SCH (16:20)
[2019-05-16] MEDS: METOPROLOL SUCCINATE 25 MG SR 24H TABLET PO SCH (16:21)
[2019-05-16] MEDS: ASPIRIN EC 81 MG TABLET PO SCH (16:21)
[2019-05-16] MEDS: PANTOPRAZOLE 40 MG TABLET PO SCH (16:21)
[2019-05-16] MEDS: TAMSULOSIN 0.4 MG CAPSULE PO SCH (16:21)
[2019-05-16] MEDS: FOLIC ACID 1 MG TABLET PO SCH (16:21)
[2019-05-17] MEDS: LEVOTHYROXINE 50 MCG TABLET PO SCH ×2 (05:00→06:25)
--- NOTE | 2019-05-17 07:36 | STRESSTEST ---
[facility] [place] Interpretive Statements This is a 73 YO male with prior WI, CHF and EF of 25%, DMII, cholesterol who presented with chest pains. No WI. resting EKG shows LBBB. No abnormal rhythms during stress portion of test. Borderline hypotension. Patient intolerant of ACEI and spironolactone. Plan: stress images today, rest images tomorrow. Radiology to review the study. [email or web address]
[2019-05-17] MEDS: FOLIC ACID 1 MG TABLET PO SCH (09:17)
[2019-05-17] MEDS: TAMSULOSIN 0.4 MG CAPSULE PO SCH (09:17)
[2019-05-17] MEDS: ASPIRIN EC 81 MG TABLET PO SCH (09:17)
[2019-05-17] MEDS: METOPROLOL SUCCINATE 25 MG SR 24H TABLET PO SCH (09:18)
[2019-05-17] MEDS: PANTOPRAZOLE 40 MG TABLET PO SCH (09:18)
--- NOTE | 2019-05-17 11:44 | PDOC(PROG) ---
Date of Service: 05/17/19 Time of Service: 11:40 Interval History: no chest pain no shortness of breath feeling okay today. Objective : Data - Labs CBC and BMP: 05/13/19 04:30 05/16/19 03:50 Objective : Exam - General General Appearance: No Acute Distress, Cooperative Additional General Exam Details: Vital Signs - Last Taken Temperature 97.1 F 05/17/19 11:19 Pulse Rate 83 05/17/19 11:19 Respiratory Rate 05/17/19 11:19 Blood Pressure 115/62 05/17/19 11:19 Pulse Ox 94 05/17/19 11:19 - Eye Eye Exam: No Scleral Icterus - ENT ENT Exam: Mucous Membranes Moist - Neck Neck Exam: JVP is not Raised - Respiratory Respiratory Exam: Clear to Auscultation - Bilaterally, Breathing Non Labored - Cardiovascular Cardiovascular Exam: RRR, No Clicks, No Gallops, No Rubs, Systolic Murmur - GI/Abdominal GI/Abdominal Exam: Non Tender, Non Distended, Soft - Extremities Extremities Exam: No Clubbing Present, No Cyanosis Present, +2 Edema - Neurological Neurological Exam: Alert, No Facial Droop, Speech Intact / Clear, Moves All Extremities Equally, Altered (oriented to person, not to time or situation.) Assessment and Plan - Patient Problems (1) Congestive heart failure Current Visit: Yes Status: Acute Code(s): I50.9 - Heart failure, unspecified Qualifiers: Heart failure type: systolic Heart failure chronicity: chronic Qualified Code(s): I50.22 - Chronic systolic (congestive) heart failure (2) Chest pain Current Visit: Yes Status: Acute Code(s): R07.9 - Chest pain, unspecified (3) Acute kidney failure Current Visit: Yes Status: Acute Code(s): N17.9 - Acute kidney failure, unspecified Qualifiers: Acute renal failure type: unspecified Qualified Code(s): N17.9 - Acute kidney failure, unspecified (4) Diabetes Current Visit: Yes Status: Acute Code(s): E11.9 - Type 2 diabetes mellitus without complications Qualifiers: Diabetes mellitus type: type 2 Diabetes mellitus electro mechanical designer insulin use: without electro mechanical designer use Diabetes mellitus complication status: without complication Qualified Code(s): E11.9 - Type 2 diabetes mellitus without complications (5) Hypothyroidism Current Visit: Yes Status: Resolved Code(s): E03.9 - Hypothyroidism, unspecified Qualifiers: Hypothyroidism type: acquired Qualified Code(s): E03.9 - Hypothyroidism, unspecified (6) History of alcoholism Current Visit: Yes Status: Acute Code(s): F10.21 - Alcohol dependence, in r emission (7) Cognitive impairment Current Visit: Yes Status: Acute Code(s): R41.89 - Other symptoms and signs involving cognitive functions and awareness (8) Hyperkalemia Current Visit: Yes Status: Resolved Code(s): E87.5 - Hyperkalemia (9) Alcoholic dementia Current Visit: Yes Status: Acute Code(s): F10.27 - Alcohol dependence with alcohol-induced persisting dementia - Assessment / Plan Additional Assessment/Plan Details: very tough situation--patient may need lasix, but not sure how well kidneys will tolerate. not a candidate for ACEI or spironolactone due to hyperkalemia and renal failure complete stress test today. I got verbal on ECHO from cardiology--EF around 25%, possible ischemic cardiomyopathy, moderate to severe aortic insufficiency will start lasix and check BMP tomorrow. labs in AM
[2019-05-17] MEDS ORDERED: Thiamine Tab 100 MG TAB PO ONE (11:46)
[2019-05-17] MEDS ORDERED: FUROSEMIDE 20 MG TABLET PO SCH (13:00)
--- NOTE | 2019-05-17 17:22 | DI ---
2 DAY LEXISCAN STRESS & REST MYOCARDIAL PERFUSION SCANS, 05/16/2019 and 05/17/2019: Clinical History: Chest pain. The patient has acute renal failure Previous Exam: None at this facility. Monitoring Physician: Dr. Francisco Jo. Dose: Stress dose: 38 mCi on 05/16/2019. Rest dose: 38 mCi on 05/17/2019. Quantitative Analysis: Samasource program without and with low dose limited CT chest scan attenuati on correction. Exam Quality: Excellent. Rejected Beats: Stress = 1%; Rest = 2%. HR: Stress = 76-78 b/m; Rest = 82-8 4 b/m. Left Ventricular Chamber Sizes: Markedly dilated at stress and rest. Right Ventricular Chamber Sizes: Normal at stress and rest Transient Ischemic Dilatation Ratio: 1.06. Normal Keyshawn TID <= 1.22; normal Lexiscan TID <= 1.33. LVEF: Stress: 23%. Rest: 23%. Myocardial Perfusion: Fixed defects involving the anterior wall from apex to base as well as the enti re septum and inferoseptal region. There is an apical lateral fixed defect with only a very small are a of reversibility that is not statistically significant. Myocardial Wall Motion: There is akinesis from the apex to the entire inferior wall and septum at str ess and rest. Marked hypokinesis is present in the anterior wall at stress and rest. There is moderat e hypokinesis in the lateral wall at stress and rest. Myocardial Thickening: No significant myocardial thickening is appreciated at stress or rest. Coronary Artery Calcifications: There are either very dense calcifications in the LAD or the patient has stents. Calcifications are also present in the right coronary artery. The CT scan also confirms l eft ventricular dilatation. Lungs: No lung nodules or enlarged nodes. There is a large bleb in the right middle lobe with a very small left pleural effusion and a small right pleural effusion that is slightly larger than on the CT scan of the abdomen and pelvis from 05/12/2019. Additional Findings: There is persistent increased lung activity on the stress and rest scans, with a ctivity in the salivary glands and kidneys as well as the stomach and small bowel. The technetium age nt is excreted primarily through the GI tract and secondarily through the kidneys. Left heart failure can account for the retained activity in the lungs and in the soft tissues and the activity in the k idneys can be accounted for by the left heart failure and renal failure, and not due to "bad" tacking of the technetium to the sestamibi ligand as was initially suspected. Readin. Left ventricular chamber dilatation. Transient ischemic dilatation ratio is normal at 1.06. There is evidence of left significant heart failure with retained activity in the lungs and kidneys. 2. Markedly depressed stress and rest LVEF values of 23% each. 3. Evidence of myocardial infarction involving the anterior wall and anteroseptal region, the inferi or wall and inferoseptal region, and the apical lateral segments. No statistically significant eviden ce of ischemic disease noted. 4. Akinesis of the inferior wall and the entire septum with marked hypokinesis of the anterior wall and moderately severe hypokinesis of the lateral wall. There is no difference between stress and rest . 5. No significant myocardial thickening is appreciated in the entire left ventricle either at stress or rest. 6. Small bilateral pleural effusions, slightly larger on the right side than the left.
[2019-05-18 04:55] LABS: BLOOD UREA NITROGEN 22 mg/dL (7-22)
[2019-05-18] MEDS: LEVOTHYROXINE 50 MCG TABLET PO SCH (05:52)
[2019-05-18 06:56] VITALS: TEMP 96.9
[2019-05-18] MEDS ORDERED: FUROSEMIDE 20 MG TABLET PO SCH (07:00)
[2019-05-18] MEDS ORDERED: ISOSORBIDE MONONITRATE 30 MG SR 24H TABLET PO SCH (09:00)
[2019-05-18] MEDS ORDERED: Thiamine Tab 100 MG TAB PO SCH (09:00)
[2019-05-18] MEDS ORDERED: CHOLECALCIFEROL 1000 IU TABLET PO SCH (09:00)
[2019-05-18] MEDS: TAMSULOSIN 0.4 MG CAPSULE PO SCH (09:29)
[2019-05-18] MEDS: METOPROLOL SUCCINATE 25 MG SR 24H TABLET PO SCH (09:29)
[2019-05-18] MEDS: ASPIRIN EC 81 MG TABLET PO SCH (09:29)
[2019-05-18] MEDS: PANTOPRAZOLE 40 MG TABLET PO SCH (09:29)
[2019-05-18] MEDS: FOLIC ACID 1 MG TABLET PO SCH (09:30)
--- NOTE | 2019-05-18 09:58 | DCSUMMARY ---
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 He was a DO NOT RESUSCITATE patient, and he was admitted, his ORLANDO inhibitor and spironolactone were discontinued and he was given IV fluids. His potassium improved as did his kidney function. Overall, in terms of his chest pain, he ruled out for myocardial infarction. We did an echocardiogram and a stress test and he does have small reversible component but mostly fixed defects and a very terrible, end-stage congestive heart failure heart with probable ischemic cardiomyopathy. As he is DO NOT RESUSCITATE, discussed with his brother, Afshin, at [phone], and it is his wish to shut the AICD function off to be consistent with his brother's wishes. As he cannot tolerate OR[place]O inhibitor and spironolactone due to hyperkalemia and kidney failure, I switched his medications to isosorbide and Lasix with a small replacement dose of potassium on the Lasix. I am ordering a basic metabolic panel and a magnesium and a brain natruretic peptide in one week at the [facility]. Again, his AICD function will be turned off. We found several laboratory abnormalities including hypothyroidism, despite Synthroid replacement, and vitamin D deficiency. We are increasing Synthroid and adding vitamin D. Given mild to moderate alcoholic dementia, I am placing him on thiamine. I stopped his Januvia as his hemoglobin A1c is extremely well controlled and his less than 7. His target can be a little higher based on his overall health is tight control could be an issue. He is a non-candidate for heart catheterization due to kidney failure, risk of kidney failure, dementia, and he is not a surgical candidate. Patient denies any chest pain or shortness breath today. I spoke with Afshin, and he agrees with the plan above. In addition, we will order social service worker to help address power of managing attorney. Assessment and Plan: 1. As per discharge assessments noted 2. Disposition: Patient will be discharged back to [facility] 3. Condition on discharge, stable and improved. Long-term prognosis very poor, probably less than 6-12 months to live 4. Diet: regular diet 5. Activities: resume normal activities 6. Follow-Up: 1. Dr. Nuñez in one week 7. Medications at the Time of Discharge: Home Medications Medication Instructions Recorded Confirmed acetaminophen 500 mg tablet 1,000 mg PO Q6H PRN tab 05/11/19 05/11/19 aspirin 81 mg tablet,delayed 81 mg PO QDAY 05/11/19 05/11/19 release folic acid 1 mg tablet 1 mg PO QDAY 05/11/19 05/11/19 magnesium 400 mg (as magnesium 400 mg PO QDAY tab 05/11/19 05/11/19 oxide) tablet metoprolol succinate ER 25 mg 12.5 mg PO QDAY tab 05/11/19 05/11/19 tablet,extended release 24 hr pantoprazole 40 mg tablet,delayed 40 mg PO QDAY 05/11/19 05/11/19 release pravastatin 10 mg tablet 10 mg PO QHS tab 05/11/19 05/11/19 Cholecalciferol [Vitamin D3] 1,000 iu PO DAILY tab 05/18/19 Furosemide [Lasix] 20 mg PO EVERY AM tab 05/18/19 Isosorbide Mononitrate ER [Imdur] 30 mg PO DAILY tab.sr.24h 05/18/19 Levothyroxine Sodium [Synthroid] 100 mcg PO DAILY #30 tab 05/18/19 Potassium Chloride [Klor-Con 10] 10 meq PO DAILY #30 tablet.er 05/18/19 Thiamine HCl [Vitamin B-1] 100 mg PO DAILY tab 05/18/19 8. Time, care, counseling and coordination of care for this discharge is greater than 30 minutes. Exam - Vitals Vital Signs: Vital Signs Temperature 96.9 F Temperature Source Temporal Artery Scan Pulse Rate [Apical] 75 Pulse Rate [Pulse Oximeter] 77 Pulse Rate [Left index finger] 89 Pulse Rate 77 Respiratory Rate 19 Blood Pressure [Right Arm] 107/60 Blood Pressure [Left Arm] 115/62 Pulse Ox [Left index finger] 97 Pulse Ox 100 Oxygen Flow Rate [Left index 1 finger] Oxygen Flow Rate 1 Oxygen Delivery Method [Left Room Air index finger] Oxygen Delivery Method Room Air Height 5 ft 6 in Weight 232 lb - General General Appearance: No Acute Distress, Cooperative - Eye Eye Exam: POSITIVE: No Scleral Icterus - ENT ENT Exam: POSITIVE: Mucous Membranes Moist - Neck Neck Exam: JVP is not Raised - Respiratory Respiratory Exam: POSITIVE: Clear to Auscultation - Bilaterally, Breathing Non Labored - Cardiovascular Cardiovascular Exam: POSITIVE: RRR, No Clicks, No Gallops, No Rubs, Systolic Murmur, No JVD - GI/Abdominal GI/Abdominal Exam: POSITIVE: Normal Bowel Sounds, Non Tender, Non Distended, Soft - Extremities Extremities Exam: POSITIVE: No Clubbing Present, No Cyanosis Present, +2 Edema - Neurological Neurological Exam: POSITIVE: Alert, No Facial Droop, Speech Intact / Clear, Moves All Extremities Equally Additional Neurological Exam Details: Oriented to person, not necessarily the time or situation. Is oriented to place and knows he is at [facility] and wants to go back to the [facility]. Data Peritnent Studies: 05/11/19 05/12/19 05/13/19 20:03 06:00 04:30 WBC 7.87 Hgb 12.3 L Hct 37.5 L Plt Count 174 Sodium Potassium Chloride Carbon Dioxide Anion Gap BUN Creatinine BUN/Creatinine Ratio Glucose Hemoglobin A1c Calculated Osmolality Calcium Troponin I < 0.012 0.012 NT-Pro-B Natriuret Pep Vitamin B12 Vitamin D 25-Hydroxy Serum Folate TSH Free T4 05/14/19 05/14/19 05/18/19 05:20 05:20 04:21 WBC Hgb Hct Plt Count Sodium 136 Potassium 4.5 Chloride 104 Carbon Dioxide 23 Anion Gap 9 BUN 22 Creatinine 1.1 BUN/Creatinine Ratio 20.00 Glucose 114 H Hemoglobin A1c 6.12 H Calculated Osmolality 285.0 Calcium 8.6 L Troponin I NT-Pro-B Natriuret Pep 32452 H Vitamin B12 Vitamin D 25-Hydroxy Serum Folate TSH Free T4 05/18/19 05/18/19 04:21 04:21 WBC Hgb Hct Plt Count Sodium Potassium Chloride Carbon Dioxide Anion Gap BUN Creatinine BUN/Creatinine Ratio Glucose Hemoglobin A1c Calculated Osmolality Calcium Troponin I NT-Pro-B Natriuret Pep Vitamin B12 558 Vitamin D 25-Hydroxy 16.1 L Serum Folate > 20.0 H TSH 15.4 H Free T4 1.08 Procedures: [address] [facility]. [facility] [place] [address] PH: DD: [phone] FAX: [phone] ~DIAGNOSTIC IMAGING REPORT~ --------- Patient: Singh Guerra : 1945 Sex: M Age: 73 Exam Name: [place] Myocardial Multi-Spect Exam Date: 05/15/19 Report # : [id number] CPT Code: 82064 EMR/MR #: [id number] Ordering: PAUL DUKE Admiting: CARLYN GARCIA MD. Primary: Vinicius Nuñez MD Attending: CARLYN GARCIA MD. Signed 2 DAY LEXISCAN STRESS & REST MYOCARDIAL PERFUSION SCANS, 05/16/2019 and 05/17/2019: Clinical History: Chest pain. The patient has acute renal failure Previous Exam: None at this facility. Monitoring Physician: Dr. Paul Duke. Dose: Stress dose: 38 mCi on 05/16/2019. Rest dose: 38 mCi on 05/17/2019. Quantitative Analysis: [id number] program without and with low dose limited CT chest scan attenuation correction. Exam Quality: Excellent. Rejected Beats: Stress = 1%; Rest = 2%. HR: Stress = 76-78 b/m; Rest = 82-84 b/m. Left Ventricular Chamber Sizes: Markedly dilated at stress and rest. Right Ventricular Chamber Sizes: Normal at stress and rest Transient Ischemic Dilatation Ratio: 1.06. Normal Keyshawn TID <= 1.22; normal Lexiscan TID <= 1.33. LVEF: Stress: 23%. Rest: 23%. Myocardial Perfusion: Fixed defects involving the anterior wall from apex to base as well as the entire septum and inferoseptal region. There is an apical lateral fixed defect with only a very small area of reversibility that is not statistically significant. Myocardial Wall Motion: There is akinesis from the apex to the entire inferior wall and septum at stress and rest. Marked hypokinesis is present in the anterior wall at stress and rest. There is moderate hypokinesis in the lateral wall at stress and rest. Myocardial Thickening: No significant myocardial thickening is appreciated at stress or rest. Coronary Artery Calcifications: There are either very dense calcifications in the LAD or the patient has stents. Calcifications are also present in the right coronary artery. The CT scan also confirms left ventricular dilatation. Lungs: No lung nodules or enlarged nodes. There is a large bleb in the right middle lobe with a very small left pleural effusion and a small right pleural effusion that is slightly larger than on the CT scan of the abdomen and pelvis from 05/12/2019. Additional Findings: There is persistent increased lung activity on the stress and rest scans, with activity in the salivary glands and kidneys as well as the stomach and small bowel. The technetium agent is excreted primarily through the GI tract and secondarily through the kidneys. Left heart failure can account for the retained activity in the lungs and in the soft tissues and the activity in the kidneys can be accounted for by the left heart failure and renal failure, and not due to "bad" tacking of the technetium to the sestamibi ligand as was initially suspected. Readin. Left ventricular chamber dilatation. Transient ischemic dilatation ratio is normal at 1.06. There is evidence of left significant heart failure with retained activity in the lungs and kidneys. 2. Markedly depressed stress and rest LVEF values of 23% each. 3. Evidence of myocardial infarction involving the anterior wall and anteroseptal region, the inferior wall and inferoseptal region, and the apical lateral segments. No statistically significant evidence of ischemic disease noted. 4. Akinesis of the inferior wall and the entire septum with marked hypokinesis of the anterior wall and moderately severe hypokinesis of the lateral wall. There is no difference between stress and rest. 5. No significant myocardial thickening is appreciated in the entire left ventricle either at stress or rest. 6. Small bilateral pleural effusions, slightly larger on the right side than the left. Dictated By: 05/17/19 3785 RICHRAD BAZZI MD. Signed By: 05/17/19 3235 RICHARD BAZZI MD. Full echocardiogram report is pending, preliminary, ejection fraction 25%, global hypokinesis [address] [facility] [place] [address] PH: DD: [phone] FAX: [phone] ~DIAGNOSTIC IMAGING REPORT~ Patient: Singh Guerra : 1945 Sex: M Age: 73 Exam Name: CT Head WO Contrast Exam Date: 05/15/19 Report # : [id number] CPT Code: 42184 EMR/MR #: [id number] Ordering: PAUL DUKE Admiting: CARLYN GARCIA MD. Primary: Vinicius Nuñez MD Attending: CARLYN GARCIA MD. Signed CT HEAD SCAN WITHOUT IV CONTRAST, 05/15/2019 3:50 PM : Clinical History: Injury. The patient fell. Chronic alcoholism. Confusion. Previous Exam: None at this facility. Technique: Scanned from the foramen magnum to vertex without IV contrast. Sagittal and coronal reformatted images generated. Contrast Volume: None. 4th Ventricle: Normal. 3rd Ventricle: Moderately dilated. Lateral Ventricles: Moderately dilated. Sella: Normal size and normal pituitary gland. Cerebrum: There is no evidence of an acute intracranial hemorrhagic focus. Cerebellum: Normal. No cerebellopontine angle mass. Normal cerebellar tonsillar position. Brainstem: Normal. Atrophy: There is diffuse cerebellar, cerebral, and brainstem atrophy. This diffuse atrophic pattern is consistent with the clinical diagnosis of chronic alcoholism. Extracerebral Mantles/Midline Shift: No extracerebral mantle or dural lesion. No midline shift. Sinuses: Small mucus retention cyst or polyp in the left maxillary sinus. Skull: Intact. READIN. There is no evidence of an acute intracranial hemorrhagic focus. 2. Diffuse cerebellar, cerebral, and brainstem atrophy consistent with the clinical diagnosis of chronic alcoholism. Dictated By: 05/15/19 1812 RICHARD BAZZI MD. Signed By: 05/15/19 1847 RICHARD BAZZI MD. [address] [facility]. [facility] [place] [address] PH: DD: [phone] FAX: [phone] ~DIAGNOSTIC IMAGING REPORT~ Patient: Singh Guerra : 1945 Sex: M Age: 73 Exam Name: [facility] Exam Date: 05/12/19 Report # : [id number] CPT Code: 98894 EMR/MR #: [id number] Ordering: Carlyn Garcia Admiting: CARLYN GARCIA MD. Primary: Vinicius Nuñez MD Attending: CARLYN GARCIA MD. Signed BILATERAL RENAL ULTRASOUND, 05/12/2019 7:00 AM: Clinical History: Acute renal failure. Previous Exam: None at this facility. Technique: Scans are performed through both kidneys in multiple projections. Renal Size: Right Kidney: 94 mm. Left Kidney: 104 mm. Renal Mass: No solid or cystic mass seen. Renal Perfusion: Normal perfusion to both kidneys. Hydronephrosis: No hydronephrosis in either kidney. Hydroureter: No hydroureter. Bladder: Appearance: Normal. Ureteral Jets: Bilateral ureteral jets visualized. Pre Void Volume: 115-120 mL. Post Void Volume: 75 mL. Prostate: Marked prostatic hypertrophy noted. Readin. Normal bilateral renal ultrasound without evidence of obstructive uropathy. The bladder is normal and there is 75 mL post void residual volume. 2. Marked prostatic hypertrophy. Dictated By: 05/12/19 1406 RICHARD BAZZI MD. Signed By: 05/12/19 1415 RICHARD BAZZI MD. [address] [facility] [place] [address] PH: DD: [phone] FAX: [phone] ~DIAGNOSTIC IMAGING REPORT~ Patient: Singh Guerra : 1945 Sex: M Age: 73 Exam Name: XR ABDOMEN ACUTE 1/CXR Exam Date: 05/11/19 Report # : [id number] CPT Code: 60375 EMR/MR #: [id number] Ordering: Pee Pollard Admiting: CARLYN GARCIA MD. Primary: Vinicius Nuñez MD Attending: CARLYN GARCIA MD. Signed CHEST X-RAY WITH ABDOMINAL SERIES, 05/11/2019 1:59 PM : Clinical History: Epigastric pain. Chest pain. Chest View: PA Abdomen View(s): KUB and upright abdomen. Previous Chest: None at this facility. Previous Abdomen: None at this facility. Chest X-Ray: Soft Tissues: No acute soft tissue or bony abnormality. Bones: Multiple old right lateral rib fractures. Heart: Heart Size: Cardiomegaly with right heart enlargement consistent with compensated chronic right heart failure. There is a combined dual-chamber pacemaker and internal defibrillator and both leads are in the appropriate position. The right ventricular lead reflects enlargement of the right heart. Vascular Pedicle Width: Enlarged. Azygous Vein: Not visualized Vascular Flow Pattern:Normal. Pulmonary Arteries: Normal. Lungs: No infiltrates. Effusion(s): None. Mediastinum: Normal. Nodules: No pulmonary nodules. Free Air: No free air under diaphragms. Abdominal Series: Soft Tissues: No acute soft tissue abnormalities. Bones: Normal. Bowel Pattern: Normal bowel gas pattern, psoas margins, and flank stripes. Free Air: No free air. Free Fluid: None. Radiodensities: No abnormal radiodensities. Readin. Cardiomegaly with compensated chronic right heart failure. This should be correlated with the clinical findings. No acute infiltrate or effusion. No free air under the diaphragms. 2. Normal KUB and upright abdomen. Dictated By: 05/11/19 1636 RICHARD BAZZI MD. Signed By: 05/11/19 1653 RICHARD BAZZI MD. ~~REPORT ADDENDUM 05/17/19~~ ADDENDUM, 05/17/2019 8:40 PM : The nuclear medicine heart study revealed left ventricular dilatation. Review of this chest x-ray shows that in retrospect, there is reversal of flow to the upper lobes indicating pulmonary venous hypertension indicating left heart failure. The haziness of the vessels with peribronchial cuffing would indicate there is a component of interstitial pulmonary edema indicating acute left heart failure. Addended Reading: There is evidence of chronic as well as acute left heart failure. Addendum Dictated By: RICHARD BAZZI Addendum Signed By: RICHARD BAZZI Patient Problems - Patient Problem List (1) Congestive heart failure Current Visit: Yes Status: Acute Code(s): I50.9 - Heart failure, unspecified Qualifiers: Heart failure type: systolic Heart failure chronicity: chronic Qualified Code(s): I50.22 - Chronic systolic (congestive) heart failure Category: Medical (2) Chest pain Current Visit: Yes Status: Acute Code(s): R07.9 - Chest pain, unspecified Category: Medical (3) Acute kidney failure Current Visit: Yes Status: Acute Code(s): N17.9 - Acute kidney failure, unspecified Qualifiers: Acute renal failure type: unspecified Qualified Code(s): N17.9 - Acute kidney failure, unspecified Category: Medical (4) Diabetes Current Visit: Yes Status: Acute Code(s): E11.9 - Type 2 diabetes mellitus without complications Qualifiers: Diabetes mellitus type: type 2 Diabetes mellitus fdc insulin use: without fdc use Diabetes mellitus complication status: without complication Qualified Code(s): E11.9 - Type 2 diabetes mellitus without complications Category: Medical (5) Hypothyroidism Current Visit: Yes Status: Resolved Code(s): E03.9 - Hypothyroidism, unspecified Qualifiers: Hypothyroidism type: acquired Qualified Code(s): E03.9 - Hypothyroidism, unspecified Category: Medical (6) History of alcoholism Current Visit: Yes Status: Acute Code(s): F10.21 - Alcohol dependence, in remission Category: Medical (7) Cognitive impairment Current Visit: Yes Status: Acute Code(s): R41.89 - Other symptoms and signs involving cognitive functions and awareness Category: Medical (8) Hyperkalemia Current Visit: Yes Status: Resolved Code(s): E87.5 - Hyperkalemia Category: Medical (9) Alcoholic dementia Current Visit: Yes Status: Acute Code(s): F10.27 - Alcohol dependence with alcohol-induced persisting dementia Category: Medical
[2019-05-18 11:11] VITALS: O2SAT 96
--- NOTE | 2019-05-18 11:14 | OT.PROG ---
Progress Note Progress Note: S: pt stated that he was happy to be going back to the care center and agreed to therapy. O: tx consisted of UE RTB red exercises in all planes of motion x 15 each, STS x2. A: pt tolerance for exercises is poor this morning. pt seems fatigued from testing completed this weekend. P: continue POC
[2019-05-18 11:24] VITALS: BP 126/59; RESP 18
--- NOTE | 2019-05-18 11:52 | PT PM DAY ---
Diagnosis : Weakness PM - Physical Therapy S: The patient had just been given lunch when we arrived. He states he is willing to work on some strengthening exercises. He states he is fatigued from some testing that he had done this morning. O: The patient performed strengthening exercises and active range of motion activities to upper extremities, lower extremities, transfers, and a minimal amount of mobility in his room. A: The patient was fatigued this afternoon. P: Continue seeing patient BID during the week and one time per day over the weekend for transfers, ambulation, and range of motion/strengthening exercises. MTDD
--- NOTE | 2019-05-18 15:25 | PT.PROG ---
Progress Note Progress Note: S. Patient agreed to do exercise in his room. O. Patient performed seated long arc quads, heel toe raises, resisted knee flexion, marches, and pillow squeezes all x 10 bilaterally, Patient was left in chair with alarm and call light. A. Patient continues to be very weak and fatigues quickly, he would continue to benefit from skilled therapy to increase strength and endurance at the [facility] center at this time. P. Continue POC.
[2019-05-19] MEDS ORDERED: LEVOTHYROXINE 50 MCG TABLET PO SCH (05:30)
== END 2019-05-18 11:32 | DRG 684 ==
LOC: ER 13:33 → MED/SURG 13:33 → OBSVTOIN 17:30 → MED/SURG 17:45
PROVIDERS: ADMIT Internal Medicine; ATTEND Internal Medicine

== ENCOUNTER 2019-05-30 07:24 | Inpatient (IN) ==
[2019-05-30] MEDS ORDERED: IPRATROPIUM/ALBUTEROL SULFATE 3 ML NEB NEB ONE (07:44)
[2019-05-30] MEDS ORDERED: LORazepam 2 MG/1 ML VIAL IVP ONE (07:57)
[2019-05-30] MEDS ORDERED: FUROSEMIDE 10 MG/1 ML - 2 ML VIAL IVP ONE (08:07)
--- NOTE | 2019-05-30 08:23 | PDOC ---
Dyspnea HPI - General Chief Complaint: Dyspnea Stated Complaint: DYSPNEA, LOW O2 SAT Date Seen by Provider: 05/30/19 Time Seen by Provider: 07:40 Source: POSITIVE: Patient, EMS, assisted records, Old records Exam Limitations: POSITIVE: Clinical condition Treatment Prior to Arrival: REPORTS: Oxygen Nurse's Notes Reviewed & Considered: Yes EMS Report Reviewed & Considered: Verbal - History of Present Illness Initial Comments: The patient is a 73-year-old male who presents to the emergency department by ambulance with increased shortness of breath. He is currently a resident at [facility]. He was recently admitted to our hospital with complaints of chest pain. He had undergone a nuclear stress test at that time and was found to have significant congestive heart failure. The patient has underlying alcoholic dementia and multiple medical problems. After discussion with the patient and family decision was made to make the patient DO NOT RESUSCITATE. His internal defibrillator was turned off apparently. He is currently a resident at [facility]. He apparently has increased shortness of breath and anxiousness and requested to come to the emergency department for evaluation. His oxygen saturations at the [facility] were in the 70s on 3 L. We could not get a good tracing here initially. The patient denies fever, current chest pain. He does have significant swelling in his legs bilaterally. - Patient Home Medications Home Medications: Home Medications acetaminophen 500 mg tablet 1,000 mg PO Q6H PRN tab 05/11/19 aspirin 81 mg tablet,delayed release 81 mg PO QDAY 05/11/19 folic acid 1 mg tablet 1 mg PO QDAY 05/11/19 magnesium 400 mg (as magnesium oxide) tablet 400 mg PO QDAY tab 05/11/19 metoprolol succinate ER 25 mg tablet,extended release 24 hr 12.5 mg PO QDAY tab 05/11/19 pantoprazole 40 mg tablet,delayed release 40 mg PO QDAY 05/11/19 pravastatin 10 mg tablet 10 mg PO QHS tab 05/11/19 Cholecalciferol [Vitamin D3] 1,000 iu PO DAILY tab 05/18/19 Furosemide [Lasix] 20 mg PO EVERY AM tab 05/18/19 Isosorbide Mononitrate ER [Imdur] 30 mg PO DAILY tab.sr.24h 05/18/19 Levothyroxine Sodium [Synthroid] 100 mcg PO DAILY #30 tab 05/18/19 Potassium Chloride [Klor-Con 10] 10 meq PO DAILY #30 tablet.er 05/18/19 Thiamine HCl [Vitamin B-1] 100 mg PO DAILY tab 05/18/19 - Patient Allergies Allergies/Adverse Reactions: Allergies Allergy/AdvReac Type Severity Reaction Status Date / Time No Known Allergies Allergy Verified 05/30/19 07:24 Past Medical History - heen HEENT History: Denies History Cardiovascular History: Hypertension, CHF, Aneurysm, Hypotension, Hyperlipidemia Additional Cardiovasular History: CARDIOMYOPATHY. DEFIB PLACEMENT Respiratory History: Home Oxygen Use Gastrointestinal History: GERD Additional Gastrointestinal History: CIRRHOSIS OF LIVER Genitourinary History: Denies History Endocrine History: Type 2 Diabetes (oral) Musculoskeletal History: Back Pain, Joint Pain Neurological History: Denies History Blood Disorders: Denies History Psychiatric History: Denies History Cancer History: Denies History History of MDRO: No In the Past 12 Months, Have Used or Abuse Any Substance: None Type / Date of Surgery: UNKNOWN Significant Family History: No pertinent family hx Past Medical History Reviewed: Reviewed - No Changes ROS - Limitations ROS Limitations: Clinical Condition Constitution: DENIES: Fever Cardiovascular: DENIES: Chest Pain Respiratory: REPORTS: Shortness Of Breath Neurological: DENIES: Headache Gastrointestinal: REPORTS: Nausea, Vomitting Endocrine: DENIES: Fatigue Musculoskeletal: DENIES: Lower Extremity Swelling Eyes: REPORTS: Denies Symptoms ENT: REPORTS: Denies Symptoms Skin: DENIES: Rash Dyspnea Physical Exam - General Appearance General Appearance: REPORTS: Alert, Cooperative, Anxious - HEENT HEENT: POSITIVE: Head Inspection Nml, Eyes Inspection Nml, Ears Inspection Nml, Nose Inspection Nml, Pharynx Inspect. Nml - Respiratory Respiratory: REPORTS: Other (Patient is tachypnea, breath sounds are diminished) - Cardiovascular Cardiovascular: REPORTS: Regular Rate and Rhythm, Heart Sounds Normal - Abdomen Abdomen: Soft: (All Quadrants), Denies Tenderness: (All Quadrants), No Distention: (All Quadrants) - Skin Skin: REPORTS: Intact, No Rash - Extremities Additional Extremities Details: Marked edema in the lower extremities bilaterally - Neurological / Psychological Neurological: POSITIVE: Other (No focal neurologic deficits) Dyspnea Progress - Results Reviewed by me Xrays/CTs/US Reviewed by me: Yes Radiology Findings: Chest x-ray shows marked cardiomegaly, congestive heart failure, consolidation in the right upper lobe Lab Results Reviewed by Me: Yes CBC and BMP: 05/30/19 08:20 05/30/19 08:20 Lab Results:: Laboratory Results 05/30/19 05/30/19 05/30/19 08:20 08:20 08:20 WBC RBC Hgb Hct MCV MCH MCHC RDW Std Deviation RDW Coeff of Nicci Plt Count MPV Immature Gran % (Auto) Neut % (Auto) Lymph % (Auto) [place] % (Auto) Eos % (Auto) Baso % (Auto) Immature Gran # (Auto) Neut # (Auto) Lymph # (Auto) [place] # (Auto) Eos # (Auto) Baso # (Auto) WBC Morphology Comment Plt Morphology Comment RBC Morph Comment D-Dimer VBG pH VBG pCO2 VBG HCO3 VBG Base Excess Sodium Potassium Chloride Carbon Dioxide Anion Gap BUN Creatinine Estimated GFR BUN/Creatinine Ratio Glucose Calculated Osmolality Lactic Acid 7.5 H Calcium Magnesium 2.5 H Total Bilirubin AST ALT Alkaline Phosphatase Troponin I 0.019 C-Reactive Protein 4.4 H NT-Pro-B Natriuret Pep 10117 H Total Protein Albumin Globulin Albumin/Globulin Ratio 05/30/19 05/30/19 05/30/19 08:20 08:20 08:20 WBC 12.85 H RBC 5.00 Hgb 13.5 L Hct 41.2 L MCV 82.4 MCH 27.0 MCHC 32.8 L RDW Std Deviation 51.6 H RDW Coeff of Nicci 17.5 H Plt Count 264 MPV 11.5 Immature Gran % (Auto) 0.9 Neut % (Auto) 80.9 H Lymph % (Auto) 9.8 L [place] % (Auto) 8.0 Eos % (Auto) 0.3 Baso % (Auto) 0.1 Immature Gran # (Auto) 0.11 Neut # (Auto) 10.40 Lymph # (Auto) 1.26 [place] # (Auto) 1.03 H Eos # (Auto) 0.04 Baso # (Auto) 0.01 WBC Morphology Comment Normal morphology Plt Morphology Comment Normal morphology RBC Morph Comment Normal morphology D-Dimer 7058 H VBG pH VBG pCO2 VBG HCO3 VBG Base Excess Sodium 127 L Potassium 5.9 H Chloride 90 L Carbon Dioxide 15 L Anion Gap 22 H BUN 42 H Creatinine 2.7 H Estimated GFR Occupational Therapy Professor BUN/Creatinine Ratio 15.55 Glucose 109 Calculated Osmolality 275.0 Lactic Acid Calcium 8.9 Magnesium Total Bilirubin 3.7 H AST 759 H ALT 533 H Alkaline Phosphatase 320 H Troponin I C-Reactive Protein NT-Pro-B Natriuret Pep Total Protein 7.6 Albumin 4.2 Globulin 3.4 Albumin/Globulin Ratio 1.20 L 05/30/19 08:21 WBC RBC Hgb Hct MCV MCH MCHC RDW Std Deviation RDW Coeff of Nicci Plt Count MPV Immature Gran % (Auto) Neut % (Auto) Lymph % (Auto) [place] % (Auto) Eos % (Auto) Baso % (Auto) Immature Gran # (Auto) Neut # (Auto) Lymph # (Auto) [place] # (Auto) Eos # (Auto) Baso # (Auto) WBC Morphology Comment Plt Morphology Comment RBC Morph Comment D-Dimer VBG pH 7.20 L VBG pCO2 47 VBG HCO3 18 L VBG Base Excess -10 L Sodium Potassium Chloride Carbon Dioxide Anion Gap BUN Creatinine Estimated GFR BUN/Creatinine Ratio Glucose Calculated Osmolality Lactic Acid Calcium Magnesium Total Bilirubin AST ALT Alkaline Phosphatase Troponin I C-Reactive Protein NT-Pro-B Natriuret Pep Total Protein Albumin Globulin Albumin/Globulin Ratio EKG Interpreted/Reviewed By Me:: Yes EKG Interpretation:: POSITIVE: Other (EKG shows left bundle branch block with a rate in the 80s, left bundle branch block was previous on previous EKGs) - Patient's Progress MDM / ED Course: The patient's blood pressure and pulse were normal on arrival. We could not get a very good O2 sat tracing. The patient appeared to be pink and was placed on high flow O2. He was given a DuoNeb. IV was established and blood cultures, lactate and venous blood gas were obtained. His venous blood gas to show a pH of 7.15 with a PCO2 of 47 and a bicarbonate of 18. His sodium was also low at 125 on the venous blood gas. Blood work from the lab reveals a white count of 12.8 with a CRP of 4.4. His lactate is elevated at 7.5. D-dimer is 7000. His sodium is 127 with a potassium of 5.9 and a creatinine of 2.7. Liver enzymes are elevated. His BNP is 22,000. His troponin is 0.019. Recent had been given 20 mg of Lasix IV as well as Ativan 1 mg IV. His O2 sats remained low with a poor tracing on high flow oxygen. The patient has significant metabolic acidosis and significant congestive heart failure with associated renal failure and electrolyte abnormalities. The patient's paperwork from the [facility] states that he is to be treated with comfort care. I did discuss the patient with Dr. Jo who is familiar with him from his last hospitalization. Decision was made to admit the patient for comfort care and Dr. Jo will discuss patient care with the patient's brother. - Consult Counseled: POSITIVE: Patient, RE: Lab Results, RE: Radiology Results, RE: DX Patient Care Time - Estimated PCT Patient Care Time (In Minutes): 40 Vital Signs - Recent Vital Signs Vital Signs: Vital Signs (Last 8 hours) Temp Pulse Resp BP Pulse Ox 05/30/19 08:37 83 26 H 79 05/30/19 08:12 95.9 F L 87 32 H 120/76 80 - VS Reviewed Vital Signs Reviewed: Yes Discharge Clinical Impression: CHF (congestive heart failure), Renal failure, Sepsis, Metabolic acidosis, Alcoholic dementia, Hyponatremia, Hyperkalemia Discharge Disposition: Admit to Inpatient Condition: Poor Patient Problem(s) Reviewed: Yes Follow Up With: MARGARITA URIAS [Primary Care Provider] - Date Decision to Admit to Inpatient: 05/30/19 Time Decision to Admit to Inpatient: 09:05
[2019-05-30 08:27] LABS: VENOUS PH 7.2 (7.32-7.42)
[2019-05-30 08:29] LABS: BASOPHILS # (AUTO) 0.01 10*3/UL; BASOPHILS % (AUTO) 0.1 % (0-1); EOSINOPHILS # (AUTO) 0.04 10*3/UL; EOSINOPHILS % (AUTO) 0.3 % (0-8); Hematocrit [HCT] 41.2 % (42.0-52.0); Hemoglobin [HGB] 13.5 g/dL (14.0-18.0); LYMPHOCYTES # (AUTO) 1.26 10*3/uL; MEAN CORPUSCULAR HGB CONC 32.8 g/dL (33-37); MEAN CORPUSCULAR VOLUME 82.4 FL (80-90); MEAN PLATELET VOLUME 11.5 FL (7.4-12.2); MONOCYTES # (AUTO) 1.03 10*3/UL (0.3-0.8); NEUTROPHILS % (AUTO) 80.9 % (50-80)
[2019-05-30 08:31] LABS: PLATELET MORPHOLOGY COMMENT NORMAL MORPHOLOGY (NORM); RBC MORPHOLOGY COMMENT NORMAL MORPHOLOGY (NORM); WBC MORPHOLOGY COMMENT NORMAL MORPHOLOGY (NORM)
[2019-05-30 08:41] LABS: BLOOD UREA NITROGEN 42 mg/dL (7-22); BUN/CREATININE RATIO 15.55 (6-20); SERUM ALBUMIN 4.2 g/dL (3.5-4.8)
[2019-05-30] MEDS ORDERED: LIDOCAINE HCL 2 % 10 ML JELLY URO-JECT TOPICAL PRN (09:03)
--- NOTE | 2019-05-30 09:11 | DI ---
Exam: FILM CXR Single frontal view chest INDICATION: Dyspnea COMPARISON: None FINDINGS: Left upper chest cardiac pacer with leads projecting in the right atrium and right ventricle. There is marked cardiomegaly. There is central venous congestion. Minimal bilateral pleural effusion. Small focal patchy opacity right perihilar region could represent small effusion in the right major fissure versus small region of subsegmental atelectasis or possible infiltrate. Remaining lungs are clear. No pneumothorax. Mediastinal and hilar contours are unremarkable. Bony elements are within normal limits for age. No acute osseous abnormality. IMPRESSION: 1. Left upper chest cardiac pacer with leads with marked cardiomegaly and early congestive heart failure with central venous congestion. Minimal bilateral pleural effusion. 2. Small focal opacity right perihilar region And some effusion in the major fissure versus subsegmental atelectasis. However correlate for possible small focus of pneumonia clinically. 3. Remaining lungs are clear. No pneumothorax.
[2019-05-30] MEDS ORDERED: ACETAMINOPHEN 325 MG TABLET PO PRN (09:37)
[2019-05-30] MEDS ORDERED: DOCUSATE 100 MG CAPSULE PO PRN (09:37)
[2019-05-30] MEDS ORDERED: CALCIUM CARBONATE 500 MG (TUMS) CHEWABLE TABLET PO PRN (09:37)
[2019-05-30] MEDS ORDERED: LIDOCAINE W/ SODIUM BICARB 0.5 ML SYR SUBD PRN (09:37)
[2019-05-30] MEDS ORDERED: ONDANSETRON 4 MG/2 ML VIAL IVP PRN (09:37)
[2019-05-30 10:42] VITALS: TEMP 97.6
[2019-05-30 10:46] VITALS: BP 102/63
--- NOTE | 2019-05-30 12:17 | PDOC ---
HPI - History of Present Illness Date of Service: 05/30/19 Time of Service: 12:12 Chief Complaint: Not feeling well History of Present Illness: This is a 73-year-old male with end-stage congestive heart failure, cardiorenal syndrome, alcoholic dementia, severe ischemic cardiomyopathy, chronic kidney disease, amongst other issues, who [facility] apparently with worsened shortness of breath today. The patient is a very poor historian and not many details can be derived from the patient. Currently is comfortable and on room air oxygen, he is obviously profoundly weak, and I don't think he could ambulate on his own. I spoke with the nurse and she stated that he could barely roll over when transferring from the emergency room gurney to the bed. The patient was quite short of breath in the emergency room, requiring 15 L on a nonrebreather, but not complaining of any significant chest pain. When I examine the patient, he is in florid congestive heart failure his labs also suggest liver failure, he has some mild jaundice, and I think is in the end stages of congestive heart failure. I placed him called to his brother, Afshin, to discuss with him further, [phone]. I did asked the patient whether he would want aggressive treatment for this, or whether he would prefer treating primary symptoms of pain and discomfort, as there is little to offer in terms of therapy to help improve his condition. He states to me that he would prefer treatment of primary symptoms of pain and discomfort. He just wants to be comfortable in terms of his breathing and not have to work so hard to do that. I did do a bedside ultrasound of his abdomen, to look for potential ascites pockets and found a couple. His chest x-ray suggests congestive heart failure with fluid in the fissure, bilateral effusions and pulmonary congestion. Past Medical History Medical History: 1. Left ventricular systolic dysfunction with congestive heart failure, ischemic cardiomyopathy, pacemaker, AICD function has been turned off. 2. Diabetes mellitus type II. 3. Hypertension. 4. Hyperlipidemia. 5. Recent urinary tract infection. 6. Recent fall. 7. Hypothyroidism. 8. Coronary artery disease, status post remote stent. 9. Alcoholic dementia Surgical History: 1. History of abdominal hernia surgery. 2. History of tonsillectomy Family History: Reviewed an Not Pertinent Pertinent Family History: Significant for severe coronary artery disease in his father and his brother Past Social History: Does not smoke, occasionally drink, no drugs. Used to live in [place] and recently transferred to [facility]. Used to drink quite heavily. No children. Tobacco Use: Never Smoker In the Past 12 Months, Have Used or Abuse Any of the Following Substance: None Alcohol Use: None (Currently no alcohol, history of heavy alcohol drinking) Medication / Allergies Home Medications: Home Medications Medication Instructions Recorded Confirmed acetaminophen 500 mg tablet 1,000 mg PO Q6H PRN tab 05/11/19 05/30/19 aspirin 81 mg tablet,delayed 81 mg PO QDAY 05/11/19 05/30/19 release folic acid 1 mg tablet 1 mg PO QDAY 05/11/19 05/30/19 magnesium 400 mg (as magnesium 400 mg PO QDAY tab 05/11/19 05/30/19 oxide) tablet metoprolol succinate ER 25 mg 12.5 mg PO QDAY tab 05/11/19 05/30/19 tablet,extended release 24 hr pantoprazole 40 mg tablet,delayed 40 mg PO QDAY 05/11/19 05/30/19 release pravastatin 10 mg tablet 10 mg PO QHS tab 05/11/19 05/30/19 Cholecalciferol [Vitamin D3] 1,000 iu PO DAILY tab 05/18/19 05/30/19 Furosemide [Lasix] 20 mg PO EVERY AM tab 05/18/19 05/30/19 Isosorbide Mononitrate ER [Imdur] 30 mg PO DAILY tab.sr.24h 05/18/19 05/30/19 Levothyroxine Sodium [Synthroid] 100 mcg PO DAILY #30 tab 05/18/19 05/30/19 Potassium Chloride [Klor-Con 10] 10 meq PO DAILY #30 tablet.er 05/18/19 05/30/19 Thiamine HCl [Vitamin B-1] 100 mg PO DAILY tab 05/18/19 05/30/19 Allergies/Adverse Reactions: Allergies Allergy/AdvReac Type Severity Reaction Status Date / Time No Known Allergies Allergy Verified 05/30/19 09:30 Review of Systems - Review of Systems ROS Unobtainable: Due to Mental Status (I'm not able to get an adequate review systems due to alcoholic dementia, but the patient does deny chest pain at this time. He denies nausea or vomiting or abdominal pain. He has had shortness of breath throughout the day.) Exam - Vitals Vital Signs: Vital Signs Temperature 97.6 F Temperature Source Oral Pulse Rate [Pulse Oximeter] 87 Pulse Rate 82 Respiratory Rate 24 Blood Pressure [Right Arm] 119/53 Blood Pressure [Left Arm] 102/63 Blood Pressure 102/63 Pulse Ox 100 Oxygen Flow Rate 15 Oxygen Delivery Method Non-Rebreather Mask Height 5 ft 6 in Weight 223 lb Vital Signs - Last Taken Temperature 97.6 F 05/30/19 10:38 Pulse Rate 87 05/30/19 10:38 Respiratory Rate 24 05/30/19 10:38 Blood Pressure 119/53 05/30/19 10:38 Pulse Ox 100 05/30/19 10:38 - General General Appearance: Cooperative, Obese - Head Head Exam: Normal Inspection, Normocephalic, Atraumatic - Eye Eye Exam: POSITIVE: Scleral Icterus - ENT ENT Exam: POSITIVE: Mucous Membranes Moist - Neck Neck Exam: Normal Inspection, No Tenderness, No Lymphadenopathy, No Thyromegaly, JVP is Raised - Respiratory Respiratory Exam: POSITIVE: Breathing Non Labored (Currently nonlabored), Decreased Breath Sounds - Cardiovascular Cardiovascular Exam: POSITIVE: RRR, No Clicks, No Gallops, No Rubs, Systolic Murmur - GI/Abdominal GI/Abdominal Exam: POSITIVE: Normal Bowel Sounds, Non Tender, Soft, Positive for Ascites - Rectal Rectal Exam: POSITIVE: Deferred - External Exam: POSITIVE: Deferred - Extremities Extremities Exam: POSITIVE: No Clubbing Present, No Cyanosis Present, +3 Edema - Neurological Neurological Exam: POSITIVE: Alert, No Facial Droop, Speech Intact / Clear, Altered (Oriented to person. Knows he is in the hospital. He could recall me from prior hospital stay, but not oriented to time. He understands any sick but I don't think he fully grasps his underlying medical conditions. Lucid.) - Psychiatric Psychiatric Exam: POSITIVE: Normal Affect, Normal Mood Results - Labs CBC and BMP: 05/30/19 08:20 05/30/19 08:20 Additional Lab Results: Laboratory Results 05/30/19 05/30/19 05/30/19 08:20 08:20 08:20 WBC RBC Hgb Hct MCV MCH MCHC RDW Std Deviation RDW Coeff of Nicci Plt Count MPV Immature Gran % (Auto) Neut % (Auto) Lymph % (Auto) [place] % (Auto) Eos % (Auto) Baso % (Auto) Immature Gran # (Auto) Neut # (Auto) Lymph # (Auto) [place] # (Auto) Eos # (Auto) Baso # (Auto) WBC Morphology Comment Plt Morphology Comment RBC Morph Comment D-Dimer VBG pH VBG pCO2 VBG HCO3 VBG Base Excess Sodium Potassium Chloride Carbon Dioxide Anion Gap BUN Creatinine Estimated GFR BUN/Creatinine Ratio Glucose Calculated Osmolality Lactic Acid 7.5 H Calcium Magnesium 2.5 H Total Bilirubin AST ALT Alkaline Phosphatase Troponin I 0.019 C-Reactive Protein 4.4 H NT-Pro-B Natriuret Pep 40615 H Total Protein Albumin Globulin Albumin/Globulin Ratio 05/30/19 05/30/19 05/30/19 08:20 08:20 08:20 WBC 12.85 H RBC 5.00 Hgb 13.5 L Hct 41.2 L MCV 82.4 MCH 27.0 MCHC 32.8 L RDW Std Deviation 51.6 H RDW Coeff of Nicci 17.5 H Plt Count 264 MPV 11.5 Immature Gran % (Auto) 0.9 Neut % (Auto) 80.9 H Lymph % (Auto) 9.8 L [place] % (Auto) 8.0 Eos % (Auto) 0.3 Baso % (Auto) 0.1 Immature Gran # (Auto) 0.11 Neut # (Auto) 10.40 Lymph # (Auto) 1.26 [place] # (Auto) 1.03 H Eos # (Auto) 0.04 Baso # (Auto) 0.01 WBC Morphology Comment Normal morphology Plt Morphology Comment Normal morphology RBC Morph Comment Normal morphology D-Dimer 7058 H VBG pH VBG pCO2 VBG HCO3 VBG Base Excess Sodium 127 L Potassium 5.9 H Chloride 90 L Carbon Dioxide 15 L Anion Gap 22 H BUN 42 H Creatinine 2.7 H Estimated GFR Umbrella Cutter BUN/Creatinine Ratio 15.55 Glucose 109 Calculated Osmolality 275.0 Lactic Acid Calcium 8.9 Magnesium Total Bilirubin 3.7 H AST 759 H ALT 533 H Alkaline Phosphatase 320 H Troponin I C-Reactive Protein NT-Pro-B Natriuret Pep Total Protein 7.6 Albumin 4.2 Globulin 3.4 Albumin/Globulin Ratio 1.20 L 05/30/19 08:21 WBC RBC Hgb Hct MCV MCH MCHC RDW Std Deviation RDW Coeff of Nicci Plt Count MPV Immature Gran % (Auto) Neut % (Auto) Lymph % (Auto) [place] % (Auto) Eos % (Auto) Baso % (Auto) Immature Gran # (Auto) Neut # (Auto) Lymph # (Auto) [place] # (Auto) Eos # (Auto) Baso # (Auto) WBC Morphology Comment Plt Morphology Comment RBC Morph Comment D-Dimer VBG pH 7.20 L VBG pCO2 47 VBG HCO3 18 L VBG Base Excess -10 L Sodium Potassium Chloride Carbon Dioxide Anion Gap BUN Creatinine Estimated GFR BUN/Creatinine Ratio Glucose Calculated Osmolality Lactic Acid Calcium Magnesium Total Bilirubin AST ALT Alkaline Phosphatase Troponin I C-Reactive Protein NT-Pro-B Natriuret Pep Total Protein Albumin Globulin Albumin/Globulin Ratio - Imaging Status: Image Reviewed by Me (I looked at the chest x-ray. Severe cardiomegaly, although this is a portable film. I did compared to chest x-ray from an acute abdominal series on prior hospital stay. There is increased fluid congestion, fluid in the fissure, and I think this is consistent with congestive heart failure.) Assessment and Plan - Patient Problems (1) Cardiorenal syndrome Current Visit: Yes Status: Acute Code(s): I13.10 - Hypertensive heart and chronic kidney disease without heart failure, with stage 1 through stage 4 chronic kidney disease, or unspecified chronic kidney disease Qualifiers: Heart failure presence: with heart failure Hypertensive chronic kidney disease stage: stage 1-4 or unspecified chronic kidney disease Qualified Code(s): I13.0 - Hypertensive heart and chronic kidney disease with heart failure and stage 1 through stage 4 chronic kidney disease, or unspecified chron ic kidney disease (2) Congestive heart failure Current Visit: Yes Status: Acute Code(s): I50.9 - Heart failure, unspecified Qualifiers: Heart failure type: systolic Heart failure chronicity: acute on chronic Qualified Code(s): I50.23 - Acute on chronic systolic (congestive) heart failure (3) Lactic acidosis Current Visit: Yes Status: Acute Code(s): E87.2 - Acidosis (4) Hepatic failure Current Visit: Yes Status: Acute Code(s): K72.90 - Hepatic failure, unspecified without coma Qualifiers: Liver failure chronicity: acute Hepatic coma status: without hepatic coma Qualified Code(s): K72.00 - Acute and subacute hepatic failure without coma (5) Acute kidney failure Current Visit: No Status: Acute Code(s): N17.9 - Acute kidney failure, unspe cified Qualifiers: Acute renal failure type: unspecified Qualified Code(s): N17.9 - Acute kidney failure, unspecified (6) Diabetes Current Visit: No Status: Acute Code(s): E11.9 - Type 2 diabetes mellitus without complications Qualifiers: Diabetes mellitus type: type 2 Diabetes mellitus meterman insulin use: without meterman use Diabetes mellitus complication status: without complication Qualified Code(s): E11.9 - Type 2 diabetes mellitus without complications (7) Alcoholic dementia Current Visit: Yes Status: Acute Code(s): F10.27 - Alcohol dependence with alcohol-induced persisting dementia (8) Metabolic acidosis Current Visit: Yes Status: Acute Code(s): E87.2 - Acidosis (9) Hyperkalemia Current Visit: Yes Status: Acute Code(s): E87.5 - Hyperkalemia - Assessment / Plan Additional Assessment/Plan Details: The patient has multisystem organ failure with renal failure, liver failure, lactic acidosis, congestive heart failure and its end stages, and there really is nothing that I have in terms of medications or treatments but will offer him survivability, at least in my opinion, and I spoke to him about that. He states to me that he would prefer treatment of primary symptoms of pain and discomfort, particularly his shortness of breath. I have a call into his brother Afshin, to discuss further. I would like to hold off on any further treatments at this point until we can clarify further whether we should be more aggressive or not with his brother, Afshin, whom the patient has designated to me as helping him with medical decisions. The patient does understand that even if he has aggressive medical therapy, his likelihood of survivability is extremely low and he is likely pass on regardless of anything that we do.
[2019-05-30] MEDS ORDERED: DIAZEPAM 10 MG/2 ML (5 MG/1 ML) CARPUJECT IVP PRN (12:55)
[2019-05-30] MEDS ORDERED: Morphine Drip 250mg/250ml 250 MG/250 ML PLAST..BAG IV SCH (13:00)
[2019-05-30] MEDS ORDERED: Sodium Chloride 0.9% 1,000 ML PRIMARY IV ONE (14:07)
[2019-05-30] MEDS ORDERED: Sodium Chloride 0.9% 1,000 ML PRIMARY IV SCH (14:15)
[2019-05-31 05:45] VITALS: O2SAT 97
[2019-05-31] MEDS ORDERED: SCOPOLAMINE HYDROBROMIDE 1.5 MG - 1 EACH PATCH TRANSDERM ONE (11:12)
--- NOTE | 2019-05-31 11:59 | PDOC(PROG) ---
Date of Service: 05/31/19 Time of Service: 11:56 Interval History: Resting more comfortably. Was able to talk to family yesterday. Essentially in coma now, agonal breathing, cyanotic at lips, gurgling sound, no response to pain stimuli. Objective : Data - Labs CBC and BMP: 05/30/19 08:20 05/30/19 08:20 Objective : Exam - General General Appearance: No Acute Distress Additional General Exam Details: Selected Entries 05/31/19 07:00 05/31/19 08:50 05/31/19 11:30 Respiratory Rate 7 L 6 L 10 L - ENT Additonal ENT Exam Details: Cyanotic at lips - Respiratory Respiratory Exam: Breathing Non Labored, Coarse Breath Sounds - Cardiovascular Cardiovascular Exam: No Clicks, No Gallops, No Rubs, No JVD Additional Cardiovascular Details: Distant heart sounds today. Assessment and Plan - Patient Problems (1) Cardiorenal syndrome Current Visit: Yes Status: Acute Code(s): I13.10 - Hypertensive heart and chronic kidney disease without heart failure, with stage 1 through stage 4 chronic kidney disease, or unspecified chronic kidney disease Qualifiers: Heart failure presence: with heart failure Hypertensive chronic kidney disease stage: stage 1-4 or unspecified chronic kidney disease Qualified Code(s): I13.0 - Hypertensive heart and chronic kidney disease with heart failu re and stage 1 through stage 4 chronic kidney disease, or unspecified chronic kidney disease (2) Congestive heart failure Current Visit: Yes Status: Acute Code(s): I50.9 - Heart failure, unspecified Qualifiers: Heart failure type: systolic Heart failure chronicity: acute on chronic Qualified Code(s): I50.23 - Acute on chronic systolic (congestive) heart failure (3) Lactic acidosis Current Visit: Yes Status: Acute Code(s): E87.2 - Acidosis (4) Hepatic failure Current Visit: Yes Status: Acute Code(s): K72.90 - Hepatic failure, unspecified without coma Qualifiers: Liver failure chronicity: acute Hepatic coma status: without hepatic coma Qualified Code(s): K72.00 - Acute and subacute hepatic failure without coma (5) Acute kidney failure Current Visit: No Status: Acute Code(s): N17.9 - Acute kidney failure, unspecified Qualifiers: Acute renal failure type: unspecified Qualified Code(s): N17.9 - Acute kidney failure, unspecified (6) Diabetes Current Visit: No Status: Acute Code(s): E11.9 - Type 2 diabetes mellitus without complications Qualifiers: Diabetes mellitus type: type 2 Diabetes mellitus chcf insulin use: without cut off saw operator use Diabetes mellitus complication status: without comp lication Qualified Code(s): E11.9 - Type 2 diabetes mellitus without comp lications (7) Alcoholic dementia Current Visit: Yes Status: Acute Code(s): F10.27 - Alcohol dependence with alcohol-induced persisting dementia (8) Metabolic acidosis Current Visit: Yes Status: Acute Code(s): E87.2 - Acidosis (9) Hyperkalemia Current Visit: Yes Status: Acute Code(s): E87.5 - Hyperkalemia - Assessment / Plan Additional Assessment/Plan Details: Add scopolamine patch to try and dry respiratory secretions. Discussed with family at length about this being a normal process in dying in terms of the gurgling sounds. RNs suctioning when necessary. Continue morphine drip. Treat symptoms of primary pain and discomfort.
[2019-05-31 13:12] VITALS: RESP 6
--- NOTE | 2019-05-31 20:57 | DCSUMMARY ---
Hospitalization Summary Admit Date: 05/30/2019 Discharge Date: 05/31/19 Primary Diagnosis:: Multisystem organ failure, cardiorenal syndrome Hospital Course: This is a very pleasant 73 YO male with moderate alcoholic dementia, CHF, end stage, cardiorenal syndrome, acute renal failure, and liver failure (acute) and probably shock liver from CHF, who presented with worsened shortness of breath. It was evident on physical exam, by history, and labs that the patient was in an exacerbation of cardiorenal syndrome and CHF. We discussed treatment options with the patient and he knew that regardless of aggressive therapies offered, he would likely pass on from these acute and chronic conditions. He told us that he wanted treatment of primary symptoms of pain and discomfort only and knew that he would pass. We placed the patient on morphine, scopolamine, and valium PRN and he passed on 05/11/2019, shortly before 2100. Exam - Vitals Vital Signs: Vital Signs no response to pain stimuli, no spontaneous respirations or heart beats. Data Peritnent Studies: 05/30/19 05/30/19 05/30/19 08:20 08:20 08:20 Hgb Hct Plt Count D-Dimer VBG pH Sodium Potassium Chloride Carbon Dioxide Anion Gap BUN Creatinine Glucose Lactic Acid 7.5 H Calcium Magnesium 2.5 H Total Bilirubin AST ALT Alkaline Phosphatase Ammonia Troponin I 0.019 C-Reactive Protein 4.4 H NT-Pro-B Natriuret Pep 96024 H 05/30/19 05/30/19 05/30/19 08:20 08:20 08:20 Hgb 13.5 L Hct 41.2 L Plt Count 264 D-Dimer 7058 H VBG pH Sodium 127 L Potassium 5.9 H Chloride 90 L Carbon Dioxide 15 L Anion Gap 22 H BUN 42 H Creatinine 2.7 H Glucose 109 Lactic Acid Calcium 8.9 Magnesium Total Bilirubin 3.7 H AST 759 H ALT 533 H Alkaline Phosphatase 320 H Ammonia Troponin I C-Reactive Protein NT-Pro-B Natriuret Pep 05/30/19 05/30/19 08:21 12:30 Hgb Hct Plt Count D-Dimer VBG pH 7.20 L Sodium Potassium Chloride Carbon Dioxide Anion Gap BUN Creatinine Glucose Lactic Acid Calcium Magnesium Total Bilirubin AST ALT Alkaline Phosphatase Ammonia < 9 L Troponin I C-Reactive Protein NT-Pro-B Natriuret Pep Chest X ray was consistent with congestive heart failure. Patient Problems - Patient Problem List (1) Cardiorenal syndrome Current Visit: Yes Status: Acute Code(s): I13.10 - Hypertensive heart and chronic kidney disease without heart failure, with stage 1 through stage 4 chronic kidney disease, or unspecified chronic kidney disease Qualifiers: Heart failure presence: with heart failure Hypertensive chronic kidney disease stage: stage 1-4 or unspecified chronic kidney disease Qualified Code(s): I13.0 - Hypertensive heart and chronic kidney disease with heart failure and stage 1 through stage 4 chronic kidney disease, or unspecified chronic kidney disease Category: Medical (2) Congestive heart failure Current Visit: Yes Status: Acute Code(s): I50.9 - Heart failure, unspecified Qualifiers: Heart failure type: systolic Heart failure chronicity: acute on chronic Qualified Code(s): I50.23 - Acute on chronic systolic (congestive) heart failure Category: Medical (3) Lactic acidosis Current Visit: Yes Status: Acute Code(s): E87.2 - Acidosis Category: Medical (4) Hepatic failure Current Visit: Yes Status: Acute Code(s): K72.90 - Hepatic failure, unspecified without coma Qualifiers: Liver failure chronicity: acute Hepatic coma status: without hepatic coma Qualified Code(s): K72.00 - Acute and subacute hepatic failure without coma Category: Medical (5) Acute kidney failure Current Visit: No Status: Acute Code(s): N17.9 - Acute kidney failure, unspecified Qualifiers: Acute renal failure type: unspecified Qualified Code(s): N17.9 - Acute kidney failure, unspecified Category: Medical (6) Diabetes Current Visit: No Status: Acute Code(s): E11.9 - Type 2 diabetes mellitus without complications Qualifiers: Diabetes mellitus type: type 2 Diabetes mellitus skilled nursing insulin use: without exterminator helper termite use Diabetes mellitus complication status: without complication Qualified Code(s): E11.9 - Type 2 diabetes mellitus without complications Category: Medical (7) Alcoholic dementia Current Visit: Yes Status: Acute Code(s): F10.27 - Alcohol dependence with alcohol-induced persisting dementia Category: Medical (8) Metabolic acidosis Current Visit: Yes Status: Acute Code(s): E87.2 - Acidosis Category: Medical (9) Hyperkalemia Current Visit: Yes Status: Acute Code(s): E87.5 - Hyperkalemia Category: Medical
--- NOTE | 2019-06-01 09:20 | EKG ---
[address] [place] [address] Measurements Intervals [place]ona Rate: 87 P: OK: 0 QRS: -44 QRSD: 170 T: 113 QT: 438 QTc: 483 Interpretive Statements SINUS RHYTHM MARKED LEFT AXIS DEVIATION LEFT BUNDLE BRANCH BLOCK Compared to ECG 05/14/2019 07:10:52 Electronically Signed On 06-02-19 08:02:48 MDT by Chris Nascimento [email or web address]
[2019-06-03] MEDS ORDERED: [UNRECOGNIZED DRUG - OTHER] TRANSDERM SCH (11:30)
== END 2019-05-31 20:35 | disposition expired | DRG 292 ==
LOC: ER 07:24 → MED/SURG 09:36
PROVIDERS: ADMIT Family Medicine; ATTEND Family Medicine